=== PATIENT | female | born 1985 | race Caucasian/White ===

== ENCOUNTER 2021-02-28 20:12 | Emergency (ER) | payer OTHER, SELFPAY ==
[2021-02-28 20:23] VITALS: BP 139/77; PULSE 85; RESP 20; TEMP 36.7; O2SAT 98; BMI 27.0
[2021-02-28 21:17] LABS: COVID19 -Nasal RAPID Negative (Negative)
--- NOTE | 2021-03-01 04:36 | ED.URI ---
HPI - URI/Sore Throat General Chief Complaint: Upper Respiratory Symptoms Stated Complaint: Cough, congestion, body aches Source: patient Mode of arrival: Ambulatory History of Present Illness HPI Narrative: Patient left without being seen. Related Data Allergies Allergy/AdvReac Type Severity Reaction Status Date / Time No Known Drug Allergies Allergy Verified 02/28/21 20:30 Patient History Social History Smoking Status: Current every day smoker Smoking Status: Current every day smoker alcohol intake frequency: 0-2 drinks per day Substance Use Type: does not use Exam Initial Vital Signs Initial Vital Signs: Vital Signs Temperature 98.0 F 02/28/21 20:23 Pulse Rate 85 02/28/21 20:23 Respiratory Rate 20 02/28/21 20:23 Blood Pressure 139/77 02/28/21 20:23 Pulse Oximetry 98 02/28/21 20:23 Course Orders Ordered: ED Orders 02/28/21 20:30 COVID19 -Nasal swab/Pre-Proc Stat MDM - URI/Sore Throat Lab Data Labs: Lab Results 02/28/21 Range/Units 20:30 SARS-CoV-2 (PCR) Negative (Negative) Discharge Plan Departure Patient Disposition: Left Without Being Seen Clinical Impression: Patient left before evaluation by physician
== END 2021-02-28 21:39 | disposition left against medical advice (07) ==
PROVIDERS: Emergency Provider Emergency Medicine
DX: Z53.21 Procedure and treatment not carried out due to patient leaving prior to being seen by health care provider (principal); Z20.822 Contact with and (suspected) exposure to COVID-19
CPT/HCPCS: 87635; 99281; C9803

== ENCOUNTER 2021-06-16 15:11 | Emergency (ER) | payer OTHER, SELFPAY ==
[2021-06-16 15:28] VITALS: BP 122/79; PULSE 89; RESP 18; TEMP 36.5; O2SAT 95; BMI 28.1
[2021-06-16 16:04] LABS: COVID19 -Nasal RAPID Negative (Negative)
--- NOTE | 2021-06-16 16:04 | ED_ITS ---
HPI - URI/Sore Throat <SANDEEP Barraza - Last Filed: 06/16/21 16:07> General Chief Complaint: Shortness of Breath/Dyspnea Stated Complaint: UPPER RESPIRATORY INFECTION Time Seen by Provider: 06/16/21 15:42 Source: patient Mode of arrival: Ambulatory History of Present Illness HPI Narrative: This is a 36-year-old female presents to the emergency department complaining of sinus tenderness, bloody nasal discharge, and sinus congestion with a productive cough that has been ongoing for 2 weeks. She states she was seen at [facility] emergency 1 week ago and prescribed cough suppressant, Tessalon Perles, and a steroid pack but states she has not gotten much better. She endorses some chest tightness, productive cough, denies any fever, denies any difficulty breathing, denies any wheezing, denies any history of asthma, states that she just feels poorly. She denies any vomiting, states the last time she had a fever was 1 week ago. Related Data Previous Rx's Medication Instructions Recorded albuterol sulfate 90 mcg/actuation 1 inh INHALATION Q4-6H PRN #1 ea 06/16/21 breath activated powder inhaler amoxicillin 875 mg-potassium 1 tab PO BID 7 Days #14 tab 06/16/21 clavulanate 125 mg tablet fluticasone furoate 27.5 1 spray INTRANASAL DAILY #9.1 ml 06/16/21 mcg/actuation nasal spray,suspension inhalational spacing device (Space #1 ea 06/16/21 Chamber) Allergies Allergy/AdvReac Type Severity Reaction Status Date / Time No Known Drug Allergies Allergy Verified 02/28/21 20:30 Review of Systems <SANDEEP Barraza - Last Filed: 06/16/21 16:07> Review of Systems Narrative: General: denies fever, chills, malaise, sweats, fatigue Head/Neck: denies headache, neck pain, dizziness Eyes: denies visual changes, eye pain Cardio: denies chest pain, palpitations, edema Respiratory: denies dyspnea, cough, orthopnea, endorses congestion, sinus tenderness, green and bloody nasal discharge GI: denies abdominal pain, nausea, vomiting, or diarrhea : denies dysuria, hematuria, urinary retention, frequency or incontinence MSK: denies joint pain, muscle weakness Skin: denies rash, itching, skin lesions or other Neuro: denies numbness, tingling Patient History <SANDEEP Barraza - Last Filed: 06/16/21 16:07> Social History Smoking Status: Former smoker Smoking Status: Former smoker alcohol intake frequency: a few times a month Substance Use Type: does not use Exam <SANDEEP Barraza - Last Filed: 06/16/21 16:07> Narrative Exam Narrative: Independently reviewed vitals signs and nursing notes. General: cooperative, comfortable, in no acute distress, well developed and well groomed Head: atraumatic, symmetrical facial expressions Neck: supple, atraumatic, without lymphadenopathy. Eyes: pupils equal round and reactive, EOMI, conjunctiva normal Nose: nares patent, no rhinorrhea, tenderness to maxillary and frontal sinuses to palpation Mouth/Throat: uvula midline, moist mucus membranes, posterior pharynx without erythema Cardiovascular: regular rate and rhythm, no peripheral edema, warm extremities Respiratory: normal effort, able to speak in complete sentences, no audible wheezing, stridor, or rales. No retractions or tachypnea. GI: abdomen soft, nontender to palpation, nondistended, no masses, no exquisite tenderness with exam, without guarding or rebound. MSK: moves all extremities, ambulatory w/steady gait, neurovascularly intact, no weakness Skin: brisk capillary refill, no rash, no erythema Neuro: normal speech and cognition, A&O x3, normal tone Psych: mental status is grossly normal, congruent mood, normal affect, pleasant and cooperative Initial Vital Signs Initial Vital Signs: Vital Signs Temperature 97.7 F 06/16/21 15:28 Pulse Rate 89 06/16/21 15:28 Respiratory Rate 18 06/16/21 15:28 Blood Pressure 122/79 06/16/21 15:28 Pulse Oximetry 95 06/16/21 15:28 Course <SANDEEP Barraza - Last Filed: 06/16/21 16:07> Orders Ordered: ED Orders 06/16/21 15:30 COVID19 -Nasal RAPID/Pre-Proc Stat Discontinued Medications Albuterol (Albuterol Hfa Mdi 60 Puff/8 Gm Inhaler) 1 puff INH NOW ONE Stop: 06/16/21 16:01 Last Admin: 06/16/21 16:09 Dose: Not Given Documented by: AALIYAH Amoxicillin/Clavulanate Potassium (Amoxicillin/Clav 875/125 Mg) 1 tab PO NOW ONE Stop: 06/16/21 16:01 Last Admin: 06/16/21 16:08 Dose: 1 tab Documented by: AALIYAH Vital Signs Vital signs: Vital Signs - 8 hr 06/16/21 15:28 Temperature 97.7 F Pulse Rate 89 Respiratory Rate 18 Blood Pressure 122/79 Pulse Oximetry 95 MDM - URI/Sore Throat <SANDEEP Barraza - Last Filed: 06/16/21 16:07> Lab Data Labs: Lab Results 06/16/21 Range/Units 15:30 SARS-CoV-2 (PCR) Negative (Negative) MDM Narrative Medical decision making narrative: - Presentation suggestive of bacterial sinusitis given history/exam without evidence of facial swelling, neurologic symptoms, or ascending infection. Patient was seen 1 week ago for similar symptoms, prescribed a steroid, cough suppressant, and Tessalon Perles without improvement. Breath sounds today are clear throughout although patient endorses chest tightness, improved after albuterol inhaler. - Antibiotics prescribed today; please complete the entire course of medication. - Discussed supportive treatments to include decongestants, antihistamines, nasal saline rinses can be used for symptomatic relief. Tylenol/Motrin can be used for fever/pain control. Maintain adequate fluid intake. Patient was prescribed Flonase and encourage b.i.d. dosing, sinus rinses, antibiotics, and follow-up with primary care if not improving. - Follow-up with PCP as directed. Return to clinic/ER instructions discussed for new, not improving, or worsening symptoms. All questions answered. Discharge Plan Departure Patient Disposition: Home Clinical Impression: Sinusitis Qualifiers: Sinusitis location: maxillary Chronicity: acute Recurrence: non-recurrent Qualified Code(s): J01.00 - Acute maxillary sinusitis, unspecified Instructions: Sinusitis Activity Restrictions/Additional Instructions: *You have been diagnosed with sinusitis. Please use Flonase morning and night, take your antibiotic twice a day for the next 7 days. Please try and stay hydrated, eat food with her medications so the that your stomach. Please continue your steroids until it is gone, follow-up with your primary doctor if continue to have symptoms. You can do sinus rinses as well which may help clear your sinuses. Thank you for trusting us with your care, I hope that you feel better soon. Please use your albuterol inhaler once every 4 hours as needed for chest tightness or sensation of wheezing. *What to do: *Please continue to take your regular medications as directed. [x ] New medication prescriptions sent to your pharmacy: [ [facility]] [ ] New medication written as a paper prescription [ ] No new medications given *Please follow up with your primary care provider in 2-3 days, call for an appointment. Let them know you were seen in the Emergency Department and that we asked that you be seen for follow-up. We will electronically transmit a record of today's note if your PCP is in our system *If you do not have a primary care provider please contact [phone] to establish care with one of the [facility] primary care providers. *Return to Emergency Department if you should have any new, worsening or concerning symptoms, such as [fever greater than 101F, chills, worsening pain, persistent vomiting or other bothersome symptoms] Prescriptions: New amoxicillin-pot clavulanate 875-125 mg tablet 1 tab PO BID 7 Days Qty: 14 0RF fluticasone furoate 27.5 mcg/actuation spray,suspension 1 spray intranasal DAILY Qty: 9.1 0RF Rx Instructions: into each nostril albuterol sulfate 90 mcg/actuation aerosol powdr breath activated 1 inh inhalation Q4-6H PRN (Reason: shortness of breath) Qty: 1 0RF (DME) Space Chamber Spacer See Rx Instructions .Route Qty: 1 0RF Rx Instructions: As directed
[2021-06-16] MEDS: AMOXICILLIN/CLAV 875/125 MG 1 TAB PO (16:08)
--- NOTE | 2021-06-16 16:13 | PC.NURSE ---
Inhaler spacer teaching given by RT
== END 2021-06-16 16:13 | disposition home or self-care (01) ==
PROVIDERS: Emergency Medicine; Emergency Provider Nurse Practitioner Critical Care Medicine
DX: J01.00 Acute maxillary sinusitis, unspecified (principal); Z87.891 Personal history of nicotine dependence; Z20.822 Contact with and (suspected) exposure to COVID-19
CPT/HCPCS: 87635; 99283; C9803; A9270

== ENCOUNTER → 2021-11-10 14:47 | Outpatient (CLI) | payer OTHER, SELFPAY ==
--- NOTE | 2021-11-10 14:48 | DI.US.S_ITS ---
PROCEDURE: US OB <= 14 WEEKS FETUS INDICATIONS: DATING OUTSIDE/PRIOR DATING DATA: Last menstrual period (LMP): 08/09/2021 LMP-based estimated date of delivery (PILO): 05/16/2022 First dating scan (date and location): 11/10/2021 Estimated date of delivery (PILO) from first dating scan: 05/14/2022 The calculations are made using the clinical PILO of 05/16/2022 TECHNIQUE: Real-time scanning was performed of the fetus and maternal pelvic organs, with image documentation. Endovaginal scanning was also performed to better visualize the fetus and maternal ovaries. COMPARISON: None. FINDINGS: Embryo: Single intrauterine gestational sac is seen with fetus and yolk sac seen. [place]-rump length measures 7.5 cm. Estimated gestational age is 13 weeks, 4 days. Heart rate: 160 beats per minute. Maternal organs: No perigestational hemorrhage. Right ovary is visualized and is within normal limits. Left ovary is not well seen. IMPRESSION: 1. Single live intrauterine gestation with fetus and yolk sac seen. heart rate is 160 beats per minute. Estimated gestational age based on current study is 13 weeks, 4 days. 2. No evidence of perigestational hemorrhage. 3. Right ovary is within normal limits. Left ovary is not well seen on this study. We strive to produce accurate, complete, and clear reports of imaging services. To assist us in improving patient care, this report was composed using standard report templates and voice recognition software. Therefore, it may contain abnormal punctuation, insertions and/or omissions. Occasional wrong-word or sound-alike substitutions may occur. Though we review the report and make efforts to correct it, we do recommend that the report be read carefully in proper context to recognize any text inaccuracies. Dictated by: Filiberto Mccoy M.D. on 11/10/2021 at 20:06 Approved by: Filiberto Mccoy M.D. on 11/10/2021 at 20:09
[2021-11-10 16:33] LABS: Add Manual Diff / Slide Review NO; Basophils Absolute Auto 0 /uL (0-100); Basophils Percent Auto 0.1 % (0-2); Eosinophils Absolute Auto 100 /uL (0-450); Eosinophils Percent Auto 0.7 % (2-4); Hematocrit 36.4 % (36-46); Hemoglobin 12.7 g/dL (12.0-16.0); Lymphocytes Absolute Auto 1500 /uL (1100-4500); Lymphocytes Percent Auto 18.2 % (25-40); Mean Corpuscular HGB Conc 34.9 % (30-36); Mean Corpuscular Hemoglobin 32.1 PG (26-34); Mean Corpuscular Volume 91.9 fL (80-100); Monocytes Absolute Auto 300 /uL (0-900); Monocytes Percent Auto 3.8 % (3-14); Neutrophils Absolute Auto 6500 /uL (1500-7000); Neutrophils Percent Auto 77.2 % (50-75); Platelet Count 273 X10^3/uL (150-400); Red Blood Cell Count 3.96 X10^6/uL (4.0-5.2); Red Cell Distribution Width 12.6 % (11.6-14.8); White Blood Cell Count 8.4 X10^3/uL (4.5-11.0)
[2021-11-11 16:45] LABS: HIV 1 & 2 Ab/Ag 4th Gen Combo NEGATIVE (NEGATIVE); Hep C Virus Ab w/Reflex Quant NEGATIVE s/c (NEGATIVE); Hepatitis B Surface Antigen NEGATIVE s/c (NEGATIVE); Rubella Antibody IgG 43.6 IU/mL (>15)
[2021-11-12 04:55] LABS: RPR Screen Non Reactive (Non Reactive)
[2021-11-12 08:31] LABS: Varicella IgG Antibody 716 index (Immune >165)
== END ==
PROVIDERS: Referring Provider Obstetrics & Gynecology; Visit Provider Obstetrics & Gynecology
DX: Z34.80 Encounter for supervision of other normal pregnancy, unspecified trimester (principal); Z3A.13 13 weeks gestation of pregnancy
CPT/HCPCS: 36415; 76801; 76817; 80055; 86787; 86803; 86850; 86900; 86901; 87389

== ENCOUNTER → 2021-11-17 10:40 | Outpatient (CLI) | payer OTHER, SELFPAY ==
[2021-11-17 14:09] LABS: Appearance Urine UA CLEAR; Bilirubin Urine UA NEGATIVE (NEGATIVE); Color Urine UA YELLOW; Glucose Urine UA NEGATIVE (Negative); Ketones Urine UA TRACE (NEGATIVE); Leukocyte Esterase Urine UA NEGATIVE (NEGATIVE); Nitrite Urine UA NEGATIVE (Negative); Occult Blood Urine UA NEGATIVE (Negative); Protein Urine UA NEGATIVE (Negative); Urobilinogen Urine UA 0.2 E.U./dL (0.2)
[2021-11-17 14:11] LABS: pH Urine UA 6.5 (4.5-8.0)
== END ==
PROVIDERS: Visit Provider Obstetrics & Gynecology
DX: Z34.82 Encounter for supervision of other normal pregnancy, second trimester (principal); Z3A.14 14 weeks gestation of pregnancy
CPT/HCPCS: 36415; 81003; 87086

== ENCOUNTER → 2021-12-16 08:14 | Outpatient (CLI) | payer OTHER, SELFPAY ==
[2021-12-16 16:28] LABS: Urine N gonorrhoeae NOT DETECTED
[2021-12-16 16:32] LABS: Urine Chlamydia NOT DETECTED
== END ==
PROVIDERS: Visit Provider Obstetrics & Gynecology
DX: Z11.3 Encounter for screening for infections with a predominantly sexual mode of transmission (principal); Z34.02 Encounter for supervision of normal first pregnancy, second trimester; Z3A.18 18 weeks gestation of pregnancy
CPT/HCPCS: 87491; 87591

== ENCOUNTER → 2021-12-16 12:22 | Outpatient (CLI) | payer OTHER, SELFPAY ==
[2021-12-16 16:36] LABS: Alanine Aminotransferase 39 IU/L (<35); Albumin 3.7 g/dL (3.5-5.0); Albumin Globulin Ratio 1.2 (1.0-2.8); Alkaline Phosphatase 66 U/L (38-126); Aspartate Aminotransferase 30 IU/L (14-36); BUN Creatinine Ratio 18.8 (6-22); Bilirubin Total 0.3 mg/dL (0.2-1.3); Blood Urea Nitrogen 12 mg/dL (7-17); Calcium 8.9 mg/dL (8.4-10.2); Carbon Dioxide 25 mmol/L (22-32); Chloride 101 mmol/L (98-107); Estimated Glomerular Filt Rate > 60 mL/min (>60); Globulin 3.2 g/dL (1.7-4.1); Glucose 72 mg/dL (70-100); HEMOLYSIS < 15 (0-50); Potassium 3.8 mmol/L (3.4-5.1); Sodium 135 mmol/L (137-145); Total Protein 6.9 g/dL (6.3-8.2)
[2021-12-20 13:51] LABS: AFP Value 61.4 ng/mL (.); Gest Age on Col Date 18.4 weeks (.); Insulin Dep Diabetes No (.); OSBR Risk 1IN 2661 (.); Results Report (.); Test Results *Screen Negative* (.)
== END ==
PROVIDERS: Referring Provider Obstetrics & Gynecology; Visit Provider Obstetrics & Gynecology
DX: O09.292 Supervision of pregnancy with other poor reproductive or obstetric history, second trimester (principal); Z36.89 Encounter for other specified antenatal screening; Z11.3 Encounter for screening for infections with a predominantly sexual mode of transmission; Z3A.18 18 weeks gestation of pregnancy
CPT/HCPCS: 36415; 80053; 82105; 87491; 87591

== ENCOUNTER 2022-02-23 16:48 | Observation (INO) | payer OTHER, SELFPAY ==
--- NOTE | 2022-02-23 17:14 | PM.OBTRLD ---
Visit Information Visit Information Date of evaluation: 02/23/22 Primary OB Provider: Bubba Harp Reason for Evaluation: Yes non-stress test Comments/Additional reasons for admission: IUP, 28+3 wks EGA, Hx of PEC w/ prior and she's had BP elevations at home over the last couple of days associated on occasion with headaches and visual changes who was asked to come in for evaluation to R/O gestational HTN w/ severe features and/or [facility] Medical History (Updated 02/09/22 @ 10:17 by Bubba Harp MD) Carpal tunnel syndrome during Cholestasis during Knee pain Migraine depression Preeclampsia Varicose veins during Surgical History (Updated 11/10/21 @ 10:16 by Myra Salgado, RN) History of tonsillectomy Previous section Status post colposcopy [place] teeth extracted Family History (Updated 11/10/21 @ 10:24 by Myra Salgado, RN) Mother Diabetes mellitus Fatty liver Father Diabetes mellitus Hyperthyroidism Stroke Afib Grandmother Colon cancer Family/Other Congenital heart defect Autoimmune disease Family/Other Brain tumor Family/Other Deafness Social History marital status: unmarried,living together number of children: 1 household members: significant other and children lives independently: Yes housing: house pets and animals: Yes (1 dog) education level: college (Associate's degree) occupational status: employed current occupational exposures/hazards: Yes (initial exposure to radiation and Hazmat, no longer) special linda needs: No travel history: 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) seatbelt use: always water heater temp set < 120 deg: Yes working smoke detector in home: Yes fire extinguisher in home: Yes carbon monox detector in home: Yes firearms in home: Yes firearms unloaded and locked: Yes do you feel safe at home: Yes Smoking Status: Never smoker second hand exposure: No alcohol intake: former (1 glass wine/week prior to learning of ) substance use type: does not use during the past year weight has: remained stable well-balanced diet: daily or most days daily servings fruits/ve-4 caffeine: Yes Type(s) of exercise: walking and weight lifting Diagnosis, Plan/Disposition Final Diagnosis (1) : Status: Acute (2) Elevated transaminase level: Status: Acute Problem details: Mild ALT elevation on baseline CMP 12/16/2021 (3) History of pre-eclampsia in prior , currently : Status: Acute (4) History of cholestasis during : Status: Acute (5) Advanced maternal age affecting , antepartum: Status: Acute
[2022-02-23] MEDS: ACETAMINOPHEN 325 MG TABLET 975 MG PO (17:34)
[2022-02-23 18:13] LABS: Basophils Percent Auto 0.2 % (0-2); Eosinophils Percent Auto 0.5 % (2-4); Hematocrit 35.8 % (36-46); Hemoglobin 12.2 g/dL (12.0-16.0); Lymphocytes Percent Auto 15.1 % (25-40); Mean Corpuscular Hemoglobin 32.5 PG (26-34); Mean Corpuscular Volume 95.5 fL (80-100); Monocytes Percent Auto 4.9 % (3-14); Neutrophils Percent Auto 79.3 % (50-75); Platelet Count 288 X10^3/uL (150-400); Red Blood Cell Count 3.75 X10^6/uL (4.0-5.2); Red Cell Distribution Width 12.9 % (11.6-14.8); White Blood Cell Count 11.7 X10^3/uL (4.5-11.0)
[2022-02-23 18:14] LABS: Add Manual Diff / Slide Review NO; Basophils Absolute Auto 0 /uL (0-100); Eosinophils Absolute Auto 100 /uL (0-450); Lymphocytes Absolute Auto 1800 /uL (1100-4500); Monocytes Absolute Auto 600 /uL (0-900); Neutrophils Absolute Auto 9300 /uL (1500-7000)
[2022-02-23 18:19] LABS: Alanine Aminotransferase 31 IU/L (<35); Albumin 3.7 g/dL (3.5-5.0); Albumin Globulin Ratio 1.2 (1.0-2.8); Alkaline Phosphatase 99 U/L (38-126); Aspartate Aminotransferase 27 IU/L (14-36); Bilirubin Total 0.4 mg/dL (0.2-1.3); Bilirubin Unconjugated 0.2 mg/dL (0.0-1.1); Globulin 3.1 g/dL (1.7-4.1); HEMOLYSIS 19 (0-50); Total Protein 6.8 g/dL (6.3-8.2)
[2022-02-23 18:58] LABS: Uric Acid 2.4 mg/dL (2.5-6.2)
[2022-02-23 19:20] VITALS: BP 119/78
[2022-02-23 19:47] LABS: Protein (Total) Urine Random 39 mg/dL (0-12)
[2022-02-23 19:48] LABS: Creatinine Urine Random 127.8 mg/dL
--- NOTE | 2022-02-23 21:08 | P.TNLD_ITS ---
Visit Information Visit Information Date of evaluation: 02/23/22 Primary OB Provider: Bubba Harp Reason for Evaluation: Yes other Comments/Additional reasons for admission: Persistent elevated BP at home 36 yo with a h/o preeclampsia with 35 week delivery with her prior brought In due to reporting elevated BP's at home. She had a borderline BP at her initial OB visit at 14 weeks, BP 134/82. BP overall normal in office subsequently. She did have a borderline elevated DBP of 88 at 1 visit. Due to prior history of the preeclampsia, it was recommended that she start checking her BP at home 2-3 times per week. She did obtain a home BP cuff. She reports that yesterday and today she had significant elevated BP's, and was symptomatic with a headache. BP yesterday elevated as high as 150-170/106-128. She has significant situational stress right now with trying to move into a new home, with renters leaving late and thus delays in some repair work prior to their needed move date from her home. patient reports BP significantly elevated at home, when dealing with the stress but was better when she was at work with SBP 130s. With the BP elevation yesterday, she was hoping it would be improved today but woke up with persistent elevated BP and call the office. She has noted a headache and nausea when her BP is elevated, both improve when BP improves. Denies scotomata. Denies abdominal pain. She does reports some pubis symphysis discomfort. She is feeling good movement. Vital Signs Vital Signs: Vital Signs - 8 hr 02/23/22 19:20 Blood Pressure 119/78 [facility] Medical History (Updated 02/23/22 @ 22:16 by Makenzie East MD) Carpal tunnel syndrome during Cholestasis during Elevated BP without diagnosis of hypertension Knee pain Migraine depression Preeclampsia Varicose veins during Surgical History (Updated 11/10/21 @ 10:16 by Myra Salgado RN) History of tonsillectomy Previous section Status post colposcopy [place] teeth extracted Family History (Updated 11/10/21 @ 10:24 by Myra Salgado, ROWDY) Mother Diabetes mellitus Fatty liver Father Diabetes mellitus Hyperthyroidism Stroke Afib Grandmother Colon cancer Family/Other Congenital heart defect Autoimmune disease Family/Other Brain tumor Family/Other Deafness Social History marital status: unmarried,living together number of children: 1 household members: significant other and children lives independently: Yes housing: house pets and animals: Yes (1 dog) education level: college (Associate's degree) occupational status: employed current occupational exposures/hazards: Yes (initial exposure to radiation and Hazmat, no longer) special linda needs: No travel history: 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) seatbelt use: always water heater temp set < 120 deg: Yes working smoke detector in home: Yes fire extinguisher in home: Yes carbon monox detector in home: Yes firearms in home: Yes firearms unloaded and locked: Yes do you feel safe at home: Yes Smoking Status: Never smoker second hand exposure: No alcohol intake: former (1 glass wine/week prior to learning of ) substance use type: does not use during the past year weight has: remained stable well-balanced diet: daily or most days daily servings fruits/ve-4 caffeine: Yes Type(s) of exercise: walking and weight lifting Exam Vital Signs (past 8 hours): - 02/23/22 19:20 Blood Pressure 119/78 Initial BP 127/83, then elevated to 141/101 when discussing work stressors. Subsequent BPs 132/92, 128/83, 123/76, 124/79, 123/89, 111/67, 108/65 Const General: cooperative and healthy appearing Orientation: alert and oriented x3 HENMT Head: normal to inspection Resp Effort & Inspection: normal respiratory effort and able to speak in complete sentences Cardio Rate: regular rate GI Palpation: soft and No tender Other: Gravid, uterus nontender Neuro General: patient alert and patient oriented x3 DTR's: Rt Patellar: 1+ and Lt Patellar: 1+ Extrem General: normal to inspection and no pedal edema Objective Labs Result Diagrams: 02/23/22 17:28 Labs: Laboratory Results - last 24 hr 02/23/22 02/23/22 02/23/22 17:28 17:28 17:28 WBC 11.7 H RBC 3.75 L Hgb 12.2 Hct 35.8 L MCV 95.5 MCH 32.5 MCHC 34.0 RDW 12.9 Plt Count 288 Neut % (Auto) 79.3 H Lymph % (Auto) 15.1 L Jackson % (Auto) 4.9 Eos % (Auto) 0.5 L Baso % (Auto) 0.2 Neut # (Auto) 9300 H Lymph # (Auto) 1800 Jackson # (Auto) 600 Eos # (Auto) 100 Baso # (Auto) 0 Uric Acid 2.4 L Total Bilirubin 0.4 Conjugated Bilirubin 0.0 Unconjugated Bilirubin 0.2 AST 27 ALT 31 Alkaline Phosphatase 99 Total Protein 6.8 Albumin 3.7 Globulin 3.1 Albumin/Globulin Ratio 1.2 U Random Total Protein Urine Creatinine Protein/Creatinin Ratio 02/23/22 18:25 WBC RBC Hgb Hct MCV MCH MCHC RDW Plt Count Neut % (Auto) Lymph % (Auto) Jackson % (Auto) Eos % (Auto) Baso % (Auto) Neut # (Auto) Lymph # (Auto) Jackson # (Auto) Eos # (Auto) Baso # (Auto) Uric Acid Total Bilirubin Conjugated Bilirubin Unconjugated Bilirubin AST ALT Alkaline Phosphatase Total Protein Albumin Globulin Albumin/Globulin Ratio U Random Total Protein 39 H Urine Creatinine 127.8 Protein/Creatinin Ratio 0.30 Evaluation Evaluation Baseline heart rate: 150 Variability: Average (6-10) monitor accelerations: Present Monitor Decelerations: Absent Category of Tracing: Appropriate for gestational age Diagnosis, Plan/Disposition Final Diagnosis (1) : Status: Acute (2) Elevated BP without diagnosis of hypertension: Status: Acute (3) History of pre-eclampsia in prior , currently : Status: Acute (4) History of cholestasis during : Status: Acute Plan/Disposition Plan: Preeclamptic labs ordered and serum labs were normal. Urine protein / creatinine ratio was elevated at 0.3. She has no baseline urine protein. A 24 hour urine had been ordered for 18 weeks, but not completed. Discussed situational elevated BP verses possible onset of gestational hypertension with severity. Proteinuria concerning for gestational hypertension, possible preeclampsia but no baseline. BP did improve with rest. However with discussing stressors again BP transiently increase, then returned back to normal. Patient reports significant BP elevation yesterday 150-170 / [id number]. When BP improved still had SBP is high as 130s, nothing lower than that. She does not feel the situational stressors are going to disappear in the near future. -Will start her on labetalol 100 mg p.o. b.i.d.. advised to check BP tomorrow, prior to starting the medication and if SBP 110 or less than hold the medication and Check in with Dr. Harp in the office whether to start. -Follow-up in office in 1 week for BP check. Continue to check BP at home daily and advised to call with persistent SBP greater than 160.
[2022-02-23 21:09] VITALS: BP 119/78
== END 2022-02-23 21:06 | disposition home or self-care (01) ==
PROVIDERS: Admitting Provider Obstetrics & Gynecology; Referring Provider Obstetrics & Gynecology; Visit Provider Obstetrics & Gynecology
DX: O26.893 Other specified pregnancy related conditions, third trimester (principal); Z3A.38 38 weeks gestation of pregnancy; R03.0 Elevated blood-pressure reading, without diagnosis of hypertension; Z87.59 Personal history of other complications of pregnancy, childbirth and the puerperium
CPT/HCPCS: 59025; 59050; 80076; 82570; 84156; 84550; 85025; G0378; G0379

== ENCOUNTER → 2022-03-10 11:39 | Outpatient (CLI) | payer OTHER, SELFPAY ==
[2022-03-10 13:46] LABS: Hematocrit 34.5 % (36-46)
[2022-03-10 14:09] LABS: Alanine Aminotransferase 58 IU/L (<35); Albumin 3.6 g/dL (3.5-5.0); Albumin Globulin Ratio 1.3 (1.0-2.8); Alkaline Phosphatase 107 U/L (38-126); Aspartate Aminotransferase 31 IU/L (14-36); BUN Creatinine Ratio 14.8 (6-22); Bilirubin Total 0.3 mg/dL (0.2-1.3); Blood Urea Nitrogen 8 mg/dL (7-17); Calcium 8.8 mg/dL (8.4-10.2); Carbon Dioxide 25 mmol/L (22-32); Chloride 103 mmol/L (98-107); Estimated Glomerular Filt Rate > 60 mL/min (>60); GTT (PREG) 1 Hour PP 50gm Dose 96 mg/dL (76-139); Globulin 2.8 g/dL (1.7-4.1); Glucose 96 mg/dL (70-100); HEMOLYSIS < 15 (0-50); Potassium 3.8 mmol/L (3.4-5.1); Sodium 136 mmol/L (137-145); Total Protein 6.4 g/dL (6.3-8.2)
[2022-03-11 11:36] LABS: Bile Acids 3.6 umol/L (0.0-10.0)
== END ==
PROVIDERS: Referring Provider Obstetrics & Gynecology; Visit Provider Obstetrics & Gynecology
DX: L29.9 Pruritus, unspecified; O99.719 Diseases of the skin and subcutaneous tissue complicating pregnancy, unspecified trimester; Z3A.30 30 weeks gestation of pregnancy; Z87.19 Personal history of other diseases of the digestive system; Z87.59 Personal history of other complications of pregnancy, childbirth and the puerperium
CPT/HCPCS: 36415; 80053; 82239; 82950; 85014; 85018

== ENCOUNTER 2022-03-19 14:55 | Outpatient (CLI) | payer OTHER, SELFPAY | END 2022-03-19 16:00 | disposition home or self-care (01) | LOC: LABOR 16:08 → OB 03-21 10:36 | PROVIDERS: Referring Provider Obstetrics & Gynecology; Visit Provider Obstetrics & Gynecology | DX: O09.523 Supervision of elderly multigravida, third trimester (principal); O26.893 Other specified pregnancy related conditions, third trimester; R10.30 Lower abdominal pain, unspecified; Z3A.31 31 weeks gestation of pregnancy | CPT/HCPCS: 59025; G0378; G0379 ==

== ENCOUNTER → 2022-03-25 14:26 | Outpatient (CLI) | payer OTHER, SELFPAY ==
[2022-03-25 15:03] LABS: Add Manual Diff / Slide Review NO; Basophils Absolute Auto 0 /uL (0-100); Basophils Percent Auto 0.3 % (0-2); Eosinophils Absolute Auto 100 /uL (0-450); Hemoglobin 12.1 g/dL (12.0-16.0); Lymphocytes Absolute Auto 1300 /uL (1100-4500); Lymphocytes Percent Auto 14.5 % (25-40); Mean Corpuscular HGB Conc 33.7 % (30-36); Mean Corpuscular Hemoglobin 32.3 PG (26-34); Mean Corpuscular Volume 95.8 fL (80-100); Monocytes Absolute Auto 300 /uL (0-900); Monocytes Percent Auto 3.2 % (3-14); Neutrophils Absolute Auto 7400 /uL (1500-7000); Platelet Count 267 X10^3/uL (150-400); Red Blood Cell Count 3.75 X10^6/uL (4.0-5.2); Red Cell Distribution Width 13.2 % (11.6-14.8); White Blood Cell Count 9.1 X10^3/uL (4.5-11.0)
[2022-03-25 15:23] LABS: Alanine Aminotransferase 35 IU/L (<35); Albumin 3.5 g/dL (3.5-5.0); Albumin Globulin Ratio 1.1 (1.0-2.8); Alkaline Phosphatase 117 U/L (38-126); Aspartate Aminotransferase 26 IU/L (14-36); BUN Creatinine Ratio 13.2 (6-22); Bilirubin Total 0.3 mg/dL (0.2-1.3); Blood Urea Nitrogen 7 mg/dL (7-17); Calcium 8.8 mg/dL (8.4-10.2); Carbon Dioxide 24 mmol/L (22-32); Chloride 104 mmol/L (98-107); Estimated Glomerular Filt Rate > 60 mL/min (>60); Globulin 3.3 g/dL (1.7-4.1); Glucose 137 mg/dL (70-100); HEMOLYSIS < 15 (0-50); Potassium 3.5 mmol/L (3.4-5.1); Sodium 137 mmol/L (137-145); Total Protein 6.8 g/dL (6.3-8.2); Uric Acid 2.7 mg/dL (2.5-6.2)
[2022-03-25 19:07] LABS: Creatinine Urine Random 86.5 mg/dL; Protein (Total) Urine Random 36 mg/dL (0-12); Protein Creatinine Ratio Urine 0.41 GRAM/24H
[2022-03-26 12:08] LABS: Bile Acids 4.3 umol/L (0.0-10.0)
== END ==
PROVIDERS: Referring Provider Obstetrics & Gynecology; Visit Provider Obstetrics & Gynecology
DX: O09.299 Supervision of pregnancy with other poor reproductive or obstetric history, unspecified trimester (principal); Z87.19 Personal history of other diseases of the digestive system; Z87.59 Personal history of other complications of pregnancy, childbirth and the puerperium
CPT/HCPCS: 36415; 80053; 82239; 82570; 84156; 84550; 85025

== ENCOUNTER 2022-04-04 17:53 | Observation (INO) | payer OTHER, SELFPAY ==
[2022-04-04] MEDS: diphenhydrAMINE 50 MG/ML VIAL 25 MG IM (18:27)
[2022-04-04 18:58] LABS: Alanine Aminotransferase 51 IU/L (<35); Albumin 3.4 g/dL (3.5-5.0); Albumin Globulin Ratio 1.1 (1.0-2.8); Alkaline Phosphatase 130 U/L (38-126); Aspartate Aminotransferase 33 IU/L (14-36); BUN Creatinine Ratio 11.3 (6-22); Bilirubin Total 0.4 mg/dL (0.2-1.3); Blood Urea Nitrogen 6 mg/dL (7-17); Calcium 8.7 mg/dL (8.4-10.2); Carbon Dioxide 26 mmol/L (22-32); Chloride 106 mmol/L (98-107); Estimated Glomerular Filt Rate > 60 mL/min (>60); Globulin 3.1 g/dL (1.7-4.1); Glucose 99 mg/dL (70-100); HEMOLYSIS < 15 (0-50); Potassium 3.9 mmol/L (3.4-5.1); Sodium 137 mmol/L (137-145); Total Protein 6.5 g/dL (6.3-8.2)
--- NOTE | 2022-04-04 20:48 | PM.OBTRLD ---
Visit Information Visit Information Date of evaluation: 04/04/22 Primary OB Provider: Bubba Harp On-call OB Provider: Theresa Fisher Comments/Additional reasons for admission: 36yo at 34w0d due to itching. The pt reports ongoing worsening of her body itchiness, acutely worse in the last 24hrs. She denies any rash/hives. It seems to spare her hands, and is primarily on her arms and torso. She denies any headaches, vision changes, RUQ pain. Swelling is stable. She is feeling her baby move regularly. No LOF, vaginal bleeding, contractions. [facility] Medical History (Updated 04/04/22 @ 20:55 by Theresa Fisher MD) Carpal tunnel syndrome during Cholestasis during Elevated BP without diagnosis of hypertension Knee pain Migraine depression Preeclampsia Varicose veins during Surgical History (Updated 11/10/21 @ 10:16 by Myra Salgado RN) History of tonsillectomy Previous section Status post colposcopy [place] teeth extracted Family History (Updated 11/10/21 @ 10:24 by Myra Salgado RN) Mother Diabetes mellitus Fatty liver Father Diabetes mellitus Hyperthyroidism Stroke Afib Grandmother Colon cancer Family/Other Congenital heart defect Autoimmune disease Family/Other Brain tumor Family/Other Deafness Social History marital status: unmarried,living together number of children: 1 household members: significant other and children lives independently: Yes housing: house pets and animals: Yes (1 dog) education level: college occupational status: employed current occupational exposures/hazards: Yes (initial exposure to radiation and Hazmat, no longer) special linda needs: No travel history: recent seatbelt use: always water heater temp set < 120 deg: Yes working smoke detector in home: Yes fire extinguisher in home: Yes carbon monox detector in home: Yes firearms in home: Yes firearms unloaded and locked: Yes do you feel safe at home: Yes Smoking Status: Never smoker second hand exposure: No alcohol intake: former substance use type: does not use during the past year weight has: remained stable well-balanced diet: daily or most days daily servings fruits/ve-4 caffeine: Yes Type(s) of exercise: walking and weight lifting Exam Narrative Exam Narrative: As per nursing report, no visible rashes or hives on body. Objective Labs 04/04/22 18:30 Labs: Laboratory Results - last 24 hr 04/04/22 18:30 Sodium 137 Potassium 3.9 Chloride 106 Carbon Dioxide 26 BUN 6 L Creatinine 0.53 Estimated GFR > 60 BUN/Creatinine Ratio 11.3 Glucose 99 Calcium 8.7 Total Bilirubin 0.4 AST 33 ALT 51 H Alkaline Phosphatase 130 H Total Protein 6.5 Albumin 3.4 L Globulin 3.1 Albumin/Globulin Ratio 1.1 Evaluation Evaluation Baseline heart rate: 120 Variability: Moderate (11-25) monitor accelerations: Present Monitor Decelerations: Absent Category of Tracing: Reactive Diagnosis, Plan/Disposition Final Diagnosis (1) Elevated transaminase level: Status: Acute Problem details: Mild ALT elevation on baseline CMP 12/16/2021 (2) History of cholestasis during : Status: Acute (3) History of pre-eclampsia in prior , currently : Status: Acute (4) Itch: Status: Acute Plan/Disposition Plan: 36yo at 34w0d here with worsening of her body itching, sparing hands and feet. Atypical location for cholestasis of , however pt reports it spared her hands and feet when diagnosed last as well. Bile acids normal 03/25. Repeat drawn today due to acute worsening of symptoms. Itchiness did improve to more tolerable level with IM Benadryl. Okay to continue PO Benadryl at home. ALT remains slightly elevated, however not significantly changed from previous values. Did not initiate Ursediol today, as bile acids still pending. Pt has f/u appt with primary OB on 04/08, hopeful lab will have returned by then. Pts BPs are stable today, does have hx of pre-eclampsia with BP slightly elevated at last appt. Stable for d/c home. OB Disposition: home
[2022-04-07 10:24] LABS: Bile Acids 7.1 umol/L (0.0-10.0)
== END 2022-04-04 19:25 | disposition home or self-care (01) ==
LOC: LABOR 17:56
PROVIDERS: Admitting Provider Obstetrics & Gynecology; Referring Provider Family Medicine; Visit Provider Family Medicine
DX: O26.893 Other specified pregnancy related conditions, third trimester (principal); L29.9 Pruritus, unspecified; Z3A.34 34 weeks gestation of pregnancy
CPT/HCPCS: 59025; 80053; 82239; 96372; G0378; G0379; J1200

== ENCOUNTER → 2022-04-08 15:13 | Outpatient (CLI) | payer OTHER, SELFPAY ==
[2022-04-08 16:42] LABS: Add Manual Diff / Slide Review NO; Basophils Absolute Auto 0 /uL (0-100); Basophils Percent Auto 0.2 % (0-2); Eosinophils Absolute Auto 100 /uL (0-450); Eosinophils Percent Auto 0.8 % (2-4); Hematocrit 34.6 % (36-46); Hemoglobin 11.8 g/dL (12.0-16.0); Lymphocytes Absolute Auto 1300 /uL (1100-4500); Lymphocytes Percent Auto 16.1 % (25-40); Mean Corpuscular HGB Conc 33.9 % (30-36); Mean Corpuscular Hemoglobin 32.2 PG (26-34); Mean Corpuscular Volume 94.9 fL (80-100); Monocytes Absolute Auto 500 /uL (0-900); Neutrophils Absolute Auto 6400 /uL (1500-7000); Neutrophils Percent Auto 76.9 % (50-75); Platelet Count 255 X10^3/uL (150-400); Red Blood Cell Count 3.65 X10^6/uL (4.0-5.2); White Blood Cell Count 8.3 X10^3/uL (4.5-11.0)
[2022-04-08 17:03] LABS: Alanine Aminotransferase 81 IU/L (<35); Albumin 3.5 g/dL (3.5-5.0); Albumin Globulin Ratio 1.2 (1.0-2.8); Alkaline Phosphatase 142 U/L (38-126); Aspartate Aminotransferase 52 IU/L (14-36); BUN Creatinine Ratio 17.5 (6-22); Bilirubin Total 0.4 mg/dL (0.2-1.3); Blood Urea Nitrogen 10 mg/dL (7-17); Calcium 8.6 mg/dL (8.4-10.2); Carbon Dioxide 21 mmol/L (22-32); Chloride 106 mmol/L (98-107); Estimated Glomerular Filt Rate > 60 mL/min (>60); Globulin 2.9 g/dL (1.7-4.1); Glucose 98 mg/dL (70-100); HEMOLYSIS < 15 (0-50); Potassium 4.1 mmol/L (3.4-5.1); Sodium 136 mmol/L (137-145); Total Protein 6.4 g/dL (6.3-8.2); Uric Acid 2.8 mg/dL (2.5-6.2)
[2022-04-08 19:24] LABS: Creatinine Urine Random 117.8 mg/dL; Protein (Total) Urine Random 22 mg/dL (0-12); Protein Creatinine Ratio Urine 0.18 GRAM/24H
[2022-04-10 12:08] LABS: Bile Acids 11.7 umol/L (0.0-10.0)
== END ==
PROVIDERS: Referring Provider Obstetrics & Gynecology; Visit Provider Obstetrics & Gynecology
DX: R80.9 Proteinuria, unspecified (principal); R03.0 Elevated blood-pressure reading, without diagnosis of hypertension; L29.9 Pruritus, unspecified
CPT/HCPCS: 36415; 80053; 82239; 82570; 84156; 84550; 85025

== ENCOUNTER 2022-04-12 11:53 | Outpatient (CLI) | payer OTHER, SELFPAY ==
[2022-04-12 12:39] LABS: Add Manual Diff / Slide Review NO; Basophils Absolute Auto 0 /uL (0-100); Basophils Percent Auto 0.2 % (0-2); Eosinophils Absolute Auto 100 /uL (0-450); Eosinophils Percent Auto 0.8 % (2-4); Hematocrit 33.7 % (36-46); Hemoglobin 11.6 g/dL (12.0-16.0); Lymphocytes Absolute Auto 1200 /uL (1100-4500); Mean Corpuscular HGB Conc 34.5 % (30-36); Mean Corpuscular Hemoglobin 32.7 PG (26-34); Mean Corpuscular Volume 94.8 fL (80-100); Monocytes Absolute Auto 400 /uL (0-900); Neutrophils Absolute Auto 5100 /uL (1500-7000); Platelet Count 244 X10^3/uL (150-400); Red Blood Cell Count 3.55 X10^6/uL (4.0-5.2); White Blood Cell Count 6.7 X10^3/uL (4.5-11.0)
[2022-04-12 12:54] LABS: Alanine Aminotransferase 74 IU/L (<35); Albumin 3.5 g/dL (3.5-5.0); Albumin Globulin Ratio 1.2 (1.0-2.8); Alkaline Phosphatase 143 U/L (38-126); Aspartate Aminotransferase 42 IU/L (14-36); BUN Creatinine Ratio 17.4 (6-22); Bilirubin Total 0.3 mg/dL (0.2-1.3); Blood Urea Nitrogen 8 mg/dL (7-17); Calcium 8.6 mg/dL (8.4-10.2); Carbon Dioxide 24 mmol/L (22-32); Chloride 107 mmol/L (98-107); Estimated Glomerular Filt Rate > 60 mL/min (>60); Globulin 2.9 g/dL (1.7-4.1); Glucose 108 mg/dL (70-100); HEMOLYSIS < 15 (0-50); Potassium 3.7 mmol/L (3.4-5.1); Sodium 134 mmol/L (137-145); Total Protein 6.4 g/dL (6.3-8.2)
--- NOTE | 2022-04-12 13:15 | PM.OBTRLD ---
Visit Information Visit Information Date of evaluation: 04/12/22 Primary OB Provider: Bubba Harp Reason for Evaluation: Yes non-stress test Comments/Additional reasons for admission: Lucero is a 36 yo at 35+ 1 weeks gestational age presenting for NST and labs due to recently diagnosed intrahepatic cholestasis of for which she is been started on ursodiol 300 mg p.o. t.i.d.. Her itching is significantly improved and her baby is active. She is not experiencing contractions, bleeding, leakage of fluid per vagina, or change in discharge. In addition she has a history of preeclampsia with her 1st delivery requiring delivery. She is had some mild blood pressure elevations but thus far her blood pressures have not met criteria for gestational hypertension. She was noted earlier in the to have mild AST/ALT elevation and has had a slight increase on her most recent labs on 04/08/2022. Vital Signs Vital Signs: BP: 133/81, 129/79 P: 77 T: 35.9C PFSH Medical History (Updated 04/12/22 @ 13:24 by Bubba Harp MD) Carpal tunnel syndrome during Cholestasis during Elevated BP without diagnosis of hypertension Knee pain Migraine depression Preeclampsia Varicose veins during Surgical History (Updated 11/10/21 @ 10:16 by Myra Salgado, ROWDY) History of tonsillectomy Previous section Status post colposcopy [place] teeth extracted Family History (Updated 11/10/21 @ 10:24 by Myra Salgado, RN) Mother Diabetes mellitus Fatty liver Father Diabetes mellitus Hyperthyroidism Stroke Afib Grandmother Colon cancer Family/Other Congenital heart defect Autoimmune disease Family/Other Brain tumor Family/Other Deafness Social History marital status: unmarried,living together number of children: 1 household members: significant other and children lives independently: Yes housing: house pets and animals: Yes (1 dog) education level: college occupational status: employed current occupational exposures/hazards: Yes (initial exposure to radiation and Hazmat, no longer) special linda needs: No travel history: recent seatbelt use: always water heater temp set < 120 deg: Yes working smoke detector in home: Yes fire extinguisher in home: Yes carbon monox detector in home: Yes firearms in home: Yes firearms unloaded and locked: Yes do you feel safe at home: Yes Smoking Status: Never smoker second hand exposure: No alcohol intake: former substance use type: does not use during the past year weight has: remained stable well-balanced diet: daily or most days daily servings fruits/ve-4 caffeine: Yes Type(s) of exercise: walking and weight lifting Review of Systems Review of Systems Narrative: Problem-specific ROS positives included in HPI Exam HENMT Head: normal to inspection, normocephalic and atraumatic Eyes General: appearance normal, both eyes and all related structures Resp Effort & Inspection: normal respiratory effort and able to speak in complete sentences GI Inspection: normal to inspection Palpation: soft and no hepatosplenomegaly Uterus Location (Fundal Height): 35 Presentation: vertex Estimated Weight (lbs): 6 Extrem Right lower extremity: normal to inspection Objective Labs 04/12/22 12:30 04/12/22 12:30 Labs: Laboratory Results - last 24 hr 04/12/22 04/12/22 12:30 12:30 WBC 6.7 RBC 3.55 L Hgb 11.6 L Hct 33.7 L MCV 94.8 MCH 32.7 MCHC 34.5 RDW 13.0 Plt Count 244 Neut % (Auto) 75.0 Lymph % (Auto) 18.0 L Cameron % (Auto) 6.0 Eos % (Auto) 0.8 L Baso % (Auto) 0.2 Neut # (Auto) 5100 Lymph # (Auto) 1200 Cameron # (Auto) 400 Eos # (Auto) 100 Baso # (Auto) 0 Sodium 134 L Potassium 3.7 Chloride 107 Carbon Dioxide 24 BUN 8 Creatinine 0.46 L Estimated GFR > 60 BUN/Creatinine Ratio 17.4 Glucose 108 H Calcium 8.6 Total Bilirubin 0.3 AST 42 H ALT 74 H Alkaline Phosphatase 143 H Total Protein 6.4 Albumin 3.5 Globulin 2.9 Albumin/Globulin Ratio 1.2 Evaluation Evaluation Baseline heart rate: 130 Variability: Moderate (11-25) monitor accelerations: Present Monitor Decelerations: Absent Contraction Frequency (minutes): 8 Uterine Contraction Intensity: Mild (Patient does not feel them) Category of Tracing: Reactive Status: Category l Diagnosis, Plan/Disposition Final Diagnosis (1) Intrahepatic cholestasis of in third trimester, antepartum: Status: Acute (2) Elevated BP without diagnosis of hypertension: Status: Acute (3) History of pre-eclampsia in prior , currently : Status: Acute (4) Advanced maternal age affecting , antepartum: Status: Acute Plan/Disposition Plan: Labs today showed no thrombocytopenia and her LFTs are slightly lower today after initiating ursodiol. Bile acid levels pending as is protein to creatinine ratio. Patient provided with a letter limiting her to 4 hour days. Follow-up will be on 04/15/2022 for an BUTCH visit but will also have an NST and labs prior to being seen at 2:30 PM in the office. Precautionary symptoms again reviewed. OB Disposition: home
[2022-04-12 13:59] LABS: Protein (Total) Urine Random 24 mg/dL (0-12); Protein Creatinine Ratio Urine 0.33 GRAM/24H
[2022-04-14 15:31] LABS: Bile Acids 19.2 umol/L (0.0-10.0)
== END 2022-04-12 13:15 | disposition home or self-care (01) ==
LOC: LABOR 12:18 → OB 04-13 16:15
PROVIDERS: Referring Provider Obstetrics & Gynecology; Visit Provider Obstetrics & Gynecology
DX: O26.613 Liver and biliary tract disorders in pregnancy, third trimester (principal); O26.893 Other specified pregnancy related conditions, third trimester; R03.0 Elevated blood-pressure reading, without diagnosis of hypertension; O09.523 Supervision of elderly multigravida, third trimester; K83.1 Obstruction of bile duct; Z3A.35 35 weeks gestation of pregnancy
CPT/HCPCS: 36415; 59025; 80053; 82239; 82570; 84156; 85025; G0378; G0379

== ENCOUNTER 2022-04-15 13:41 | Outpatient (CLI) | payer OTHER, SELFPAY ==
[2022-04-15 14:36] LABS: Add Manual Diff / Slide Review YES; Hematocrit 32.7 % (36-46); Hemoglobin 11.6 g/dL (12.0-16.0); Mean Corpuscular HGB Conc 35.4 % (30-36); Mean Corpuscular Hemoglobin 33.5 PG (26-34); Mean Corpuscular Volume 94.6 fL (80-100); Platelet Count 239 X10^3/uL (150-400); Red Blood Cell Count 3.45 X10^6/uL (4.0-5.2); Red Cell Distribution Width 12.8 % (11.6-14.8); White Blood Cell Count 7.4 X10^3/uL (4.5-11.0)
[2022-04-15 14:52] LABS: Alanine Aminotransferase 61 IU/L (<35); Albumin 3.2 g/dL (3.5-5.0); Albumin Globulin Ratio 1.1 (1.0-2.8); Alkaline Phosphatase 139 U/L (38-126); Aspartate Aminotransferase 37 IU/L (14-36); Bilirubin Total 0.4 mg/dL (0.2-1.3); Blood Urea Nitrogen 9 mg/dL (7-17); Calcium 8.2 mg/dL (8.4-10.2); Carbon Dioxide 19 mmol/L (22-32); Chloride 107 mmol/L (98-107); Estimated Glomerular Filt Rate > 60 mL/min (>60); Glucose 117 mg/dL (70-100); HEMOLYSIS < 15 (0-50); Potassium 3.8 mmol/L (3.4-5.1); Sodium 134 mmol/L (137-145); Total Protein 6.2 g/dL (6.3-8.2)
[2022-04-15 14:59] LABS: Neutrophils Absolute Manual 5772 /uL (3000-5900); Total Cells Counted 100
[2022-04-15 15:00] LABS: RBC Morphology Normal Morphology
[2022-04-15 15:14] LABS: Creatinine Urine Random 152.2 mg/dL; Protein (Total) Urine Random 26 mg/dL (0-12); Protein Creatinine Ratio Urine 0.17 GRAM/24H
== END 2022-04-15 14:39 | disposition home or self-care (01) ==
LOC: LABOR 14:17 → OB 04-21 13:38
PROVIDERS: Referring Provider Obstetrics & Gynecology; Visit Provider Obstetrics & Gynecology
DX: O09.523 Supervision of elderly multigravida, third trimester (principal); Z3A.35 35 weeks gestation of pregnancy
CPT/HCPCS: 80053; 82239; 82570; 84156; 85007; 85025; 87653; G0378; G0379

== ENCOUNTER → 2022-04-15 15:06 | Outpatient (CLI) | payer OTHER, SELFPAY ==
[2022-04-16 15:55] LABS: Strep Grp B PCR NEG for Grp B Strep
== END ==
PROVIDERS: Visit Provider Obstetrics & Gynecology
DX: Z34.83 Encounter for supervision of other normal pregnancy, third trimester (principal); Z3A.35 35 weeks gestation of pregnancy
CPT/HCPCS: 87653

== ENCOUNTER 2022-04-19 15:37 | Observation (INO) | payer OTHER, SELFPAY ==
[2022-04-19 17:34] LABS: Add Manual Diff / Slide Review NO; Basophils Absolute Auto 0 /uL (0-100); Basophils Percent Auto 0.4 % (0-2); Eosinophils Absolute Auto 100 /uL (0-450); Eosinophils Percent Auto 0.8 % (2-4); Hematocrit 32.6 % (36-46); Hemoglobin 11.3 g/dL (12.0-16.0); Lymphocytes Absolute Auto 1500 /uL (1100-4500); Lymphocytes Percent Auto 18.7 % (25-40); Mean Corpuscular HGB Conc 34.9 % (30-36); Mean Corpuscular Volume 94.7 fL (80-100); Monocytes Absolute Auto 400 /uL (0-900); Monocytes Percent Auto 4.6 % (3-14); Neutrophils Absolute Auto 6100 /uL (1500-7000); Neutrophils Percent Auto 75.5 % (50-75); Platelet Count 253 X10^3/uL (150-400); Red Blood Cell Count 3.44 X10^6/uL (4.0-5.2); Red Cell Distribution Width 13.1 % (11.6-14.8); White Blood Cell Count 8.1 X10^3/uL (4.5-11.0)
[2022-04-19 17:47] LABS: Alanine Aminotransferase 62 IU/L (<35); Albumin 3.4 g/dL (3.5-5.0); Albumin Globulin Ratio 1.1 (1.0-2.8); Alkaline Phosphatase 149 U/L (38-126); Aspartate Aminotransferase 37 IU/L (14-36); BUN Creatinine Ratio 15.1 (6-22); Bilirubin Total 0.3 mg/dL (0.2-1.3); Blood Urea Nitrogen 8 mg/dL (7-17); Calcium 8.6 mg/dL (8.4-10.2); Carbon Dioxide 22 mmol/L (22-32); Chloride 106 mmol/L (98-107); Estimated Glomerular Filt Rate > 60 mL/min (>60); Glucose 106 mg/dL (70-100); HEMOLYSIS < 15 (0-50); Potassium 3.6 mmol/L (3.4-5.1); Sodium 136 mmol/L (137-145); Total Protein 6.4 g/dL (6.3-8.2)
[2022-04-19 18:09] LABS: Creatinine Urine Random 89.2 mg/dL; Protein (Total) Urine Random 21 mg/dL (0-12); Protein Creatinine Ratio Urine 0.23 GRAM/24H
[2022-04-22 09:22] LABS: Bile Acids 17.7 umol/L (0.0-10.0)
== END 2022-04-19 17:26 | disposition home or self-care (01) ==
PROVIDERS: Admitting Provider Obstetrics & Gynecology; Referring Provider Obstetrics & Gynecology; Visit Provider Obstetrics & Gynecology
DX: O16.3 Unspecified maternal hypertension, third trimester (principal); O47.03 False labor before 37 completed weeks of gestation, third trimester; O09.523 Supervision of elderly multigravida, third trimester; Z3A.36 36 weeks gestation of pregnancy
CPT/HCPCS: 36415; 59025; 59050; 80053; 82239; 82570; 84156; 85025; G0378; G0379

== ENCOUNTER 2022-04-22 12:30 | Outpatient (CLI) | payer OTHER, SELFPAY ==
[2022-04-22 13:20] LABS: Add Manual Diff / Slide Review NO; Basophils Absolute Auto 0 /uL (0-100); Basophils Percent Auto 0.4 % (0-2); Eosinophils Absolute Auto 0 /uL (0-450); Eosinophils Percent Auto 0.4 % (2-4); Hematocrit 35.9 % (36-46); Hemoglobin 12.2 g/dL (12.0-16.0); Lymphocytes Absolute Auto 1300 /uL (1100-4500); Lymphocytes Percent Auto 16.5 % (25-40); Mean Corpuscular HGB Conc 33.9 % (30-36); Mean Corpuscular Hemoglobin 32.5 PG (26-34); Mean Corpuscular Volume 95.7 fL (80-100); Monocytes Absolute Auto 300 /uL (0-900); Monocytes Percent Auto 4.2 % (3-14); Neutrophils Absolute Auto 6400 /uL (1500-7000); Neutrophils Percent Auto 78.5 % (50-75); Platelet Count 244 X10^3/uL (150-400); Red Blood Cell Count 3.75 X10^6/uL (4.0-5.2); Red Cell Distribution Width 13.1 % (11.6-14.8); White Blood Cell Count 8.1 X10^3/uL (4.5-11.0)
[2022-04-22 13:33] LABS: Alanine Aminotransferase 64 IU/L (<35); Albumin 3.6 g/dL (3.5-5.0); Albumin Globulin Ratio 1.2 (1.0-2.8); Alkaline Phosphatase 163 U/L (38-126); Aspartate Aminotransferase 41 IU/L (14-36); BUN Creatinine Ratio 17.2 (6-22); Bilirubin Total 0.4 mg/dL (0.2-1.3); Blood Urea Nitrogen 10 mg/dL (7-17); Calcium 9.1 mg/dL (8.4-10.2); Carbon Dioxide 24 mmol/L (22-32); Chloride 104 mmol/L (98-107); Estimated Glomerular Filt Rate > 60 mL/min (>60); Globulin 3.1 g/dL (1.7-4.1); Glucose 86 mg/dL (70-100); HEMOLYSIS < 15 (0-50); Sodium 134 mmol/L (137-145); Total Protein 6.7 g/dL (6.3-8.2)
[2022-04-22 15:11] LABS: Creatinine Urine Random 64.1 mg/dL; Protein (Total) Urine Random 19 mg/dL (0-12); Protein Creatinine Ratio Urine 0.29 GRAM/24H
[2022-04-23 13:45] LABS: Bile Acids 25.7 umol/L (0.0-10.0)
--- NOTE | 2022-04-24 10:30 | P.TNLD_ITS ---
Visit Information Visit Information Date of evaluation: 04/22/22 Primary OB Provider: Bubba Harp Reason for Evaluation: Yes non-stress test Comments/Additional reasons for admission: Lucero returns for her twice weekly NST now at 36+4 wks EGA due to IHCP w/ mildly elevated LFT's, increasingly labile BP, AMA, and history of PEC w/ severe features necessitating delivery by CS at 35 weeks EGA with her first . BP's at home have been in the 130 - mid-140'w / 80 - mid-90's range. Her itching is markedly improved with the Ursodiol but she still has to take benadryl occasionally for the itching. Vital Signs Vital Signs: Initial BP: 170/112 P: 102 (Patient arrived tearful and upset after office visit immediately prior to NST) 10 minutes later: BP: 143/85, 133/84 P: 90 T: 36.1C [facility] Medical History (Updated 04/12/22 @ 13:24 by Bubba Harp MD) Carpal tunnel syndrome during Cholestasis during Elevated BP without diagnosis of hypertension Knee pain Migraine depression Preeclampsia Varicose veins during Surgical History (Updated 04/12/22 @ 13:30 by Bubba Harp MD) History of tonsillectomy Previous section Status post colposcopy [place] teeth extracted Family History (Updated 11/10/21 @ 10:24 by Myra Salgado RN) Mother Diabetes mellitus Fatty liver Father Diabetes mellitus Hyperthyroidism Stroke Afib Grandmother Colon cancer Family/Other Congenital heart defect Autoimmune disease Family/Other Brain tumor Family/Other Deafness Social History marital status: unmarried,living together number of children: 1 household members: significant other and children lives independently: Yes housing: house pets and animals: Yes (1 dog) education level: college occupational status: employed current occupational exposures/hazards: Yes (initial exposure to radiation and Hazmat, no longer) special linda needs: No travel history: recent seatbelt use: always water heater temp set < 120 deg: Yes working smoke detector in home: Yes fire extinguisher in home: Yes carbon monox detector in home: Yes firearms in home: Yes firearms unloaded and locked: Yes do you feel safe at home: Yes Smoking Status: Never smoker second hand exposure: No alcohol intake: former substance use type: does not use during the past year weight has: remained stable well-balanced diet: daily or most days daily servings fruits/ve-4 caffeine: Yes Type(s) of exercise: walking and weight lifting Exam HENMT Head: normal to inspection, normocephalic and atraumatic Eyes General: appearance normal, both eyes and all related structures Resp Effort & Inspection: normal respiratory effort and able to speak in complete sentences GI Inspection: normal to inspection Palpation: soft and no hepatosplenomegaly Psych Appearance: grossly normal Mental Status: mental status grossly normal Speech and Movement: speech and movement normal Mood: anxious mood Affect: normal affect Attitude: cooperative Thought Process: normal Thought Content: normal Judgment: judgment good Objective Labs 04/22/22 13:05 04/22/22 13:05 Labs: Laboratory Results - last 24 hr 04/22/22 13:05 Bile Acids 25.7 H protein to creatinine ratio: 0.29 Evaluation Evaluation Baseline heart rate: 130 Variability: Moderate (11-25) monitor accelerations: Present Monitor Decelerations: Absent Contraction Frequency (minutes): 5 Uterine Contraction Intensity: Mild Category of Tracing: Reactive Diagnosis, Plan/Disposition Final Diagnosis (1) History of delivery, antepartum: Status: Acute (2) Intrahepatic cholestasis of in third trimester, antepartum: Status: Acute (3) Elevated BP without diagnosis of hypertension: Status: Acute (4) Elevated transaminase level: Status: Acute Problem details: Mild ALT elevation on baseline CMP 12/16/2021 (5) : Status: Acute (6) History of pre-eclampsia in prior , currently : Status: Acute (7) Advanced maternal age affecting , antepartum: Status: Acute Plan/Disposition Plan: Dating for this is solid w/ first US at 13+4 wks EGA concurrent w/ LMP based PILO, make infant by [facility]. Her labile initial BP transiently into the severe range when she was upset is concerning but as long as long as BP's remain non-severe range at home, no clear indication currently for delivery prior to 38 weeks. Will continue twice weekly NST/labs and deliver after 37 weeks if antihypetensive therapy becomes necessary. Will also review with Dr. lAyson Degroot who is currently scheduled to perform her RCS on Tuesday May 03, 2022 in my scheduled absence that date. OB Disposition: home
== END 2022-04-22 13:25 | disposition home or self-care (01) ==
LOC: LABOR 13:26 → OB 04-27 06:57
PROVIDERS: Referring Provider Obstetrics & Gynecology; Visit Provider Obstetrics & Gynecology
DX: O09.523 Supervision of elderly multigravida, third trimester (principal); O26.613 Liver and biliary tract disorders in pregnancy, third trimester; K83.1 Obstruction of bile duct; Z3A.36 36 weeks gestation of pregnancy; O34.219 Maternal care for unspecified type scar from previous cesarean delivery; O26.893 Other specified pregnancy related conditions, third trimester; R03.0 Elevated blood-pressure reading, without diagnosis of hypertension; Z87.59 Personal history of other complications of pregnancy, childbirth and the puerperium
CPT/HCPCS: 36415; 59025; 80053; 82239; 82570; 84156; 85025; G0378; G0379

== ENCOUNTER 2022-04-27 14:52 | Observation (INO) | payer OTHER, SELFPAY ==
[2022-04-27 15:36] LABS: Add Manual Diff / Slide Review NO; Basophils Absolute Auto 0 /uL (0-100); Basophils Percent Auto 0.3 % (0-2); Eosinophils Absolute Auto 0 /uL (0-450); Eosinophils Percent Auto 0.3 % (2-4); Hemoglobin 12.1 g/dL (12.0-16.0); Lymphocytes Absolute Auto 1300 /uL (1100-4500); Lymphocytes Percent Auto 17.9 % (25-40); Mean Corpuscular HGB Conc 34.5 % (30-36); Mean Corpuscular Hemoglobin 32.9 PG (26-34); Mean Corpuscular Volume 95.3 fL (80-100); Monocytes Absolute Auto 300 /uL (0-900); Monocytes Percent Auto 4.3 % (3-14); Neutrophils Absolute Auto 5500 /uL (1500-7000); Neutrophils Percent Auto 77.2 % (50-75); Platelet Count 220 X10^3/uL (150-400); Red Blood Cell Count 3.67 X10^6/uL (4.0-5.2); Red Cell Distribution Width 13.4 % (11.6-14.8); White Blood Cell Count 7.2 X10^3/uL (4.5-11.0)
[2022-04-27 15:59] LABS: Alanine Aminotransferase 124 IU/L (<35); Albumin 3.5 g/dL (3.5-5.0); Albumin Globulin Ratio 1.1 (1.0-2.8); Alkaline Phosphatase 170 U/L (38-126); Aspartate Aminotransferase 70 IU/L (14-36); BUN Creatinine Ratio 22.2 (6-22); Bilirubin Total 0.3 mg/dL (0.2-1.3); Blood Urea Nitrogen 12 mg/dL (7-17); Calcium 8.5 mg/dL (8.4-10.2); Carbon Dioxide 23 mmol/L (22-32); Chloride 105 mmol/L (98-107); Estimated Glomerular Filt Rate > 60 mL/min (>60); Globulin 3.1 g/dL (1.7-4.1); Glucose 110 mg/dL (70-100); HEMOLYSIS < 15 (0-50); Potassium 3.8 mmol/L (3.4-5.1); Sodium 135 mmol/L (137-145); Total Protein 6.6 g/dL (6.3-8.2)
[2022-04-27 17:04] LABS: Creatinine Urine Random 229.7 mg/dL; Protein (Total) Urine Random 12 mg/dL (0-12); Protein Creatinine Ratio Urine 0.05 GRAM/24H
[2022-04-30 10:42] LABS: Bile Acids 13.3 umol/L (0.0-10.0)
== END 2022-04-27 17:12 | disposition home or self-care (01) ==
PROVIDERS: Admitting Provider Obstetrics & Gynecology; Referring Provider Obstetrics & Gynecology; Visit Provider Obstetrics & Gynecology
DX: O47.1 False labor at or after 37 completed weeks of gestation (principal); O09.523 Supervision of elderly multigravida, third trimester; Z3A.37 37 weeks gestation of pregnancy
CPT/HCPCS: 36415; 59025; 80053; 82239; 82570; 84156; 85025; G0378; G0379

== ENCOUNTER 2022-04-29 05:48 | Inpatient (IN) | payer OTHER, SELFPAY ==
--- NOTE | 2022-04-29 07:20 | PM.OBHP.1 ---
OB HPI Date/Time Date of admission: 04/29/22 Date Patient Seen: 04/29/22 Time Patient Seen: 07:20 History of Present Condition Chief complaint: IUP, 37+4 wks EGA, IHCP, elevated LFT's : 2 Para: 1 Estimated Date of Delivery: 05/16/22 Estimated Gestational Age (weeks): 37+4 Narrative: Isha Su is a 36 year old Indications Operative indications ( section): previous uterine surgery History of Present care: good care Dating criteria: LMP confirmed by 1st trimester US Ultrasounds: normal 1st trimester US and normal mid trimester US Obstetrical complications: gestational hypertension (Intermittent BP elevations) and other (Intrahepatic cholestasis of with elevated LFTs) Medical complications: none Preadmission Labs Blood type: A (+) positive -: Antibody screen: negative, GBS status: negative, HBsAG: negative, HIV: negative and RPR/VDLR: negative -: Chlamydia screen: not detected and Gonorrhea screen: not detected -: Rubella: immune and Varicella: immune HCT: 35.0 HCAB: negative PAP: Normal Quad screen: Normal (AFP testing negative) Cell-free DNA: Low risk male 1 hr GTT: 96 Prior (ies) History: CS x 1 Evaluation Evaluation Baseline heart rate: 140 Variability: Moderate (11-25) monitor accelerations: Present Monitor Decelerations: Absent Uterine Contraction Intensity: Mild Status: Category l PFSH Medical History (Updated 04/27/22 @ 14:48 by Bubba Harp MD) Carpal tunnel syndrome during Cholestasis during Elevated BP without diagnosis of hypertension Knee pain Migraine depression Preeclampsia Varicose veins during Surgical History (Updated 04/12/22 @ 13:30 by Bubba Harp MD) History of tonsillectomy Previous section Status post colposcopy [place] teeth extracted Family History (Updated 11/10/21 @ 10:24 by Myra Salgado RN) Mother Diabetes mellitus Fatty liver Father Diabetes mellitus Hyperthyroidism Stroke Afib Grandmother Colon cancer Family/Other Congenital heart defect Autoimmune disease Family/Other Brain tumor Family/Other Deafness Social History marital status: unmarried,living together number of children: 1 household members: significant other and children lives independently: Yes housing: house pets and animals: Yes (1 dog) education level: college occupational status: employed current occupational exposures/hazards: Yes (initial exposure to radiation and Hazmat, no longer) special linda needs: No travel history: recent seatbelt use: always water heater temp set < 120 deg: Yes working smoke detector in home: Yes fire extinguisher in home: Yes carbon monox detector in home: Yes firearms in home: Yes firearms unloaded and locked: Yes do you feel safe at home: Yes Smoking Status: Never smoker second hand exposure: No alcohol intake: former substance use type: does not use during the past year weight has: remained stable well-balanced diet: daily or most days daily servings fruits/ve-4 caffeine: Yes Type(s) of exercise: walking and weight lifting Meds Home Medications and Allergies Home Medications Medication Instructions Recorded Confirmed Type prenat.vits,louis,kua-tpno-celvo 1 tab PO DAILY 11/10/21 04/29/22 History ursodiol 300 mg capsule 300 mg PO TID #90 caps 04/09/22 04/29/22 Rx omeprazole 20 mg capsule,delayed 20 mg 2XD 04/29/22 04/29/22 History release Allergies Allergy/AdvReac Type Severity Reaction Status Date / Time No Known Drug Allergies Allergy Verified 04/27/22 14:02 Review of Systems Review of Systems Narrative: Problem-specific ROS positives included in HPI OB Exam Vital signs Blood Pressure: 126/81 Pulse Rate: 85 Temperature: 97.0 F HENMT Head: normal to inspection, normocephalic and atraumatic Eyes General: appearance normal, both eyes and all related structures Resp Effort & Inspection: normal respiratory effort and able to speak in complete sentences Auscultation: clear to auscultation bilaterally Cardio Rate: regular rate Rhythm: regular rhythm Heart Sounds: S1 normal, S2 normal and no murmurs Extremities Lower extremity: Yes normal to inspection GI Inspection: normal to inspection Palpation: Yes soft and Yes no hepatosplenomegaly Uterus Location (Fundal Height): 37 Presentation: vertex Estimated Weight (lbs): 7 Objective Labs 04/29/22 07:00 Assessment and Plan Assessment and Plan Assessment and Plan narrative: ASSESSMENT 1. Intrauterine PLAN 1. Admit Time Spent with Patient Total time spent with greater than 50% in coordination of care (as documented) at patient's floor/unit and/or counseling patient:: 15-24 minutes
[2022-04-29 07:23] LABS: Alanine Aminotransferase 112 IU/L (<35); Albumin 3.3 g/dL (3.5-5.0); Albumin Globulin Ratio 1.1 (1.0-2.8); Alkaline Phosphatase 153 U/L (38-126); Aspartate Aminotransferase 61 IU/L (14-36); BUN Creatinine Ratio 22.4 (6-22); Bilirubin Total 0.3 mg/dL (0.2-1.3); Blood Urea Nitrogen 13 mg/dL (7-17); Calcium 8.5 mg/dL (8.4-10.2); Carbon Dioxide 23 mmol/L (22-32); Chloride 105 mmol/L (98-107); Estimated Glomerular Filt Rate > 60 mL/min (>60); Globulin 2.9 g/dL (1.7-4.1); Glucose 84 mg/dL (70-100); HEMOLYSIS < 15 (0-50); Potassium 3.8 mmol/L (3.4-5.1); Sodium 134 mmol/L (137-145); Total Protein 6.2 g/dL (6.3-8.2)
[2022-04-29 07:32] VITALS: BP 126/81; PULSE 85; TEMP 36.1
--- NOTE | 2022-04-29 07:32 | PM.PREOP ---
Pre-operative Note COVID-19 COVID-19 status: Not tested Criteria for continued procedure: Non-surgical alternatives not available or appropriate per current SOC Interval Note History & Physical reviewed/Exam performed by Physician: Yes Changes to H&P: No
[2022-04-29] MEDS: CEFAZOLIN 2 GM/100 ML PREMIX 100 ML IV (08:00)
--- NOTE | 2022-04-29 08:29 | SUR.OPER ---
Supine on Padded OR bed, head on pillow, safety belt at thigh, arms secured on padded arm boards at <90 degrees abduction. Bump under right buttock. Legs uncrossed, tape over blanket to lower legs. Gel pad placed under
[2022-04-29 08:55] LABS: Creatinine Urine Random 214.3 mg/dL; Protein (Total) Urine Random 13 mg/dL (0-12); Protein Creatinine Ratio Urine 0.06 GRAM/24H
--- NOTE | 2022-04-29 08:58 | SUR.OPER ---
viable baby boy delivered at 0831. Placenta and cord blood tubes x2 given to L&D RN.
[2022-04-29 09:21] VITALS: BP 101/68; PULSE 108; RESP 12; O2SAT 96
[2022-04-29 09:22] VITALS: BP 108/73; PULSE 101; RESP 12; TEMP 36.2; O2SAT 96
[2022-04-29 09:26] VITALS: BP 104/60; PULSE 110; RESP 20; O2SAT 97
[2022-04-29] MEDS: LACTATED RINGERS 1,000 ML 100 ML IV (09:29)
[2022-04-29 09:31] VITALS: PULSE 100; RESP 15; O2SAT 96
[2022-04-29 09:32] VITALS: BP 105/69
--- NOTE | 2022-04-29 09:32 | PM.OBCS.1 ---
Operative Date/Time/Diagnoses Date of procedure: 04/29/22 Time of procedure: 08:00 Pre-op diagnosis: Intrauterine gestation, hernandez, 37+4 weeks EGA Previous section x 1 Intrahepatic cholestasis of Elevated liver function studies Post-op diagnosis: same Procedure & Clinicians Procedure: Repeat section, low transverse cervical incision Same procedure as scheduled: Yes Indications: Lucero is a 36-year-old , PILO 05/16/2022 who was admitted now at 37+ 4 weeks gestational age for repeat section.? is being done at this gestational age due to development of intrahepatic cholestasis of midway through the 3rd trimester with subsequent elevation of her ALT and AST to more than twice normal.? She is had intermittent elevations of her blood pressure but no consistent elevations which would justify the diagnosis of gestational hypertension and her protein to creatinine ratio has not been elevated.? GBS is negative.? Cell free DNA shows low risk male fetus. Surgeon: Bubba Harp Reading Assistant: Theresa Fisher Reason for Reading Assistant: Reading Assistant required for the safe, effective, and timely completion of this surgery. Anesthesia Type: Spinal Operative Notes Findings: Viable male BW 3549 gms (7 lbs. 13.2 oz.), Apgars 8/9, delivered from the vertex presentation. Normal gravid anatomy. Closure Type: primary Specimen(s): cord blood Intraoperative meds administered: Ketorolac and Pitocin Applied: Catheter Estimated Blood Loss (mL): 700 Blood products transfused: none Procedure in detail: With her informed written consent, the patient was taken to the operating room and placed in the supine position for a repeat section procedure, for the indication(s) above. The abdomen was prepped and draped in the usual manner for section and a pre-surgical timeout was taken per [facility] OR protocol. Once effective anesthesia was confirmed, a 15 cm transverse Pfannenstiel incision was made in the skin and taken down through the subcutaneous tissues to the deep fascia. The deep fascia was incised transversely, the rectus abdominal eyes bluntly and sharply, and the peritoneal cavity entered without difficulty. The lower uterine segment was visualized and the position/presentation palpated. A transverse incision at or above the vesicouterine reflection was made with Metzenbaum scissors and transverse hysterotomy performed near the midline. Amniotomy revealed clear fluid. The incision was extended bilaterally with digital traction and the infant was delivered easily from the vertex presentation. The was vigorous and cord clamping delayed for 60 seconds. The placenta was delivered intact using gentle cord traction and fundal massage.The uterine cavity was then cleared of any clot/debris first with a sloppy wet lap tape followed by a dry lap tape. Ring forceps were then applied to the angles and the midline of the incised ELVIS. A primary closure of the uterus was then accomplished with #1 CCGS in a running interlocking stitch followed by a 2nd layer of #1 CCGS in a running interlocking imbricating stitch. No additional sutures was/were required to achieve complete hemostasis. Once pelvic hemostasis was assured, the bladder flap and anterior peritoneum were closed with a running 2-0 Vicryl suture and the fascia closed with #1 Vicryl in a running stitch initiated at both angles and tying separately near the midline. The subcutaneous tissues were reapproximated with 2-0 plain catgut suture using inverted interrupted stitches. The skin edges were then brought together with 4-0 Monocryl in a subcuticular closure and the incision was reinforced with 1 Steri-Strips. An appropriate compression dressing was applied and the patient transferred to PACU for recovery and subsequent transfer to the Center for recuperation. Complications: none [place] Baby 1: Gender: Male Presentation: vertex Position: Occiput Posterior Placental Delivery Description: Spontaneous Cord Vessel Description: 3 Vessels score (1 min): 8 score (5 min): 9 weight: 7 lb 13.187 oz Post-operative Condition: stable Disposition: PACU Aftercare: routine postop
--- NOTE | 2022-04-29 09:41 | SUR.PHASEI ---
back to [facility] with belongings. moving feet and increasing sensation.
[2022-04-29] MEDS: ACETAMINOPHEN 325 MG TABLET 650 MG PO ×3 (10:40→22:57)
[2022-04-29] MEDS: ONDANSETRON 4 MG/2 ML INJ IV (12:57)
[2022-04-29] MEDS: ursodioL 300 MG CAPSULE PO (13:09)
[2022-04-29] MEDS: KETOROLAC 30 MG/ML VIAL IV ×2 (15:22→21:09)
[2022-04-29] MEDS: LANOLIN OINT 7 GM 1 APPLIC TOP (21:07)
[2022-04-30] MEDS: KETOROLAC 30 MG/ML VIAL IV (02:59)
[2022-04-30] MEDS: ACETAMINOPHEN 325 MG TABLET 650 MG PO ×4 (04:53→23:29)
[2022-04-30 06:52] LABS: Add Manual Diff / Slide Review NO; Basophils Absolute Auto 100 /uL (0-100); Basophils Percent Auto 0.8 % (0-2); Eosinophils Absolute Auto 0 /uL (0-450); Eosinophils Percent Auto 0.3 % (2-4); Hematocrit 27.6 % (36-46); Hemoglobin 9.6 g/dL (12.0-16.0); Lymphocytes Absolute Auto 1400 /uL (1100-4500); Lymphocytes Percent Auto 14.8 % (25-40); Mean Corpuscular HGB Conc 34.7 % (30-36); Mean Corpuscular Volume 95.2 fL (80-100); Monocytes Absolute Auto 400 /uL (0-900); Monocytes Percent Auto 4.4 % (3-14); Neutrophils Absolute Auto 7500 /uL (1500-7000); Neutrophils Percent Auto 79.7 % (50-75); Platelet Count 210 X10^3/uL (150-400); Red Cell Distribution Width 13.3 % (11.6-14.8); White Blood Cell Count 9.4 X10^3/uL (4.5-11.0)
[2022-04-30 07:04] LABS: Alanine Aminotransferase 108 IU/L (<35); Albumin 2.7 g/dL (3.5-5.0); Albumin Globulin Ratio 1.1 (1.0-2.8); Alkaline Phosphatase 121 U/L (38-126); Aspartate Aminotransferase 60 IU/L (14-36); BUN Creatinine Ratio 19.5 (6-22); Bilirubin Total 0.2 mg/dL (0.2-1.3); Blood Urea Nitrogen 15 mg/dL (7-17); Calcium 8.3 mg/dL (8.4-10.2); Carbon Dioxide 27 mmol/L (22-32); Chloride 102 mmol/L (98-107); Estimated Glomerular Filt Rate > 60 mL/min (>60); Globulin 2.5 g/dL (1.7-4.1); Glucose 95 mg/dL (70-100); HEMOLYSIS < 15 (0-50); Potassium 3.9 mmol/L (3.4-5.1); Sodium 131 mmol/L (137-145); Total Protein 5.2 g/dL (6.3-8.2)
[2022-04-30] MEDS: PRENATAL VIT,CALC/IRON/FOLIC 1 TABLET 1 TAB PO (08:58)
[2022-04-30] MEDS: IBUPROFEN 600 MG TABLET PO ×3 (08:58→20:32)
[2022-04-30] MEDS: ursodioL 300 MG CAPSULE PO ×3 (08:59→20:32)
[2022-04-30] MEDS: DOCUSATE 100 MG CAPSULE PO (08:59)
[2022-04-30 10:42] LABS: Bile Acids 9.6 umol/L (0.0-10.0)
--- NOTE | 2022-04-30 14:10 | P.DS_ITS ---
Discharge Providers Provider Date of admission: 04/29/22 05:48 Discharge Date: 05/01/22 Primary care physician: Guillaume TAVARES Provider Consults: 04/29/22 09:49 Consult to Fisheries Enforcement Officer Routine Comment: Discharge provider: Nigel Sheets MD Summary Hospital Course Date Patient Seen: 05/01/22 Time Patient Seen: 14:36 Diagnoses: 2nd day postop repeat Hospital Course: I was called by nursing Service to come discharge her. Patient stated that she did not request to go home even though her baby has been discharged. She says she is been feeling weak when she gets up to go to the bathroom Patient's uterine fundus is appropriately tender for 1st postop day. Patient has not had any narcotic since her delivery minimally touching her fundus caused pain and I encouraged the patient to take a single oxycodone Patient's liver functions are still significantly elevated with only minimal decrease Now May 01. Patient much less pain and does ask for discharge Peripartum Data Infant Delivery Method: Section Time Spent with Patient Time attestation: Total time spent providing and/or coordinating discharge services: Time spent: Greater than 30 minutes Objective Labs 04/30/22 06:41 04/30/22 06:41 Labs: Laboratory Results - last 24 hr 04/29/22 04/30/22 04/30/22 07:00 06:41 06:41 WBC 9.4 RBC 2.90 L Hgb 9.6 L Hct 27.6 L MCV 95.2 MCH 33.0 MCHC 34.7 RDW 13.3 Plt Count 210 Neut % (Auto) 79.7 H Lymph % (Auto) 14.8 L [place] % (Auto) 4.4 Eos % (Auto) 0.3 L Baso % (Auto) 0.8 Neut # (Auto) 7500 H Lymph # (Auto) 1400 [place] # (Auto) 400 Eos # (Auto) 0 Baso # (Auto) 100 Sodium 131 L Potassium 3.9 Chloride 102 Carbon Dioxide 27 BUN 15 Creatinine 0.77 Estimated GFR > 60 BUN/Creatinine Ratio 19.5 Glucose 95 Calcium 8.3 L Total Bilirubin 0.2 AST 60 H ALT 108 H Alkaline Phosphatase 121 Total Protein 5.2 L Albumin 2.7 L Globulin 2.5 Albumin/Globulin Ratio 1.1 Bile Acids 9.6 Exam Vital Signs (past 8 hours): Oxygen Delivery Method Room Air Const General: cooperative Nutritional Appearance: average body habitus HENMT Head: normal to inspection Face and sinus: normal facial exam GI Palpation: soft Other: Incision clean and dry around the Aquacel Psych Appearance: grossly normal Mood: congruent mood Affect: normal affect Judgment: judgment good Discharge Plan Discharge Plan Provider Discharge Comment: Patient understands the need to get liver function test and CBC on and come to the clinic on Monday for her wound evaluation Discharge orders & Medications Discharge Orders: Discharge (Order); Ordered 05/01/22 Ordered By: Nigel Sheets Prescriptions: New ursodiol 300 mg Capsule 300 mg PO TID Qty: 30 0RF ibuprofen 600 mg Tablet 600 mg PO Q6H Qty: 30 0RF oxycodone 5 mg Tablet 5 mg PO 1-2XD PRN (Reason: Pain, Moderate (4-6)) Qty: 15 0RF Continued prenat.vits,louis,[id number] Tablet 1 tab PO DAILY ursodiol 300 mg capsule 300 mg PO TID Qty: 90 2RF omeprazole 20 mg capsule,delayed release(DR/EC) 20 mg 2XD Follow up/Referrals: Nigel Sheets MD [Physician] - (Incision check with Dr. Sheets on 05/06/2022 @ 1430) ProviderGuillaume [Primary Care Provider] - Discharge Data Primary Care Provider: Guillaume Kwong
[2022-04-30] MEDS: OXYCODONE IR 5 MG TABLET PO ×2 (14:28→20:32)
--- NOTE | 2022-04-30 14:39 | P.PN_ITS ---
Subjective Subjective Date Patient Seen: 04/30/22 Time Patient Seen: 14:42 Interval history: 30 hours postop from repeat section. I was called by nurses to discharge patient as the baby was discharged Speaking to the patient she was not wanting to go home as she was still having significant pain around her uterine fundus. While taking routine ibuprofen she has not had any narcotic since surgery Patient is continuing her Ursoliol and is not having any systemic itching Exam Vital Signs (past 8 hours): Oxygen Delivery Method Room Air Narrative Exam Narrative: Patient's initial pressure dressing was removed incision was clean dry and an Aquacel was applied Objective ECG Impression: 1st postop day satisfactory. AST and ALT have not decreased significantly patient is anemic at 9.08/23. She states she is lightheaded when she goes erect. Discussed she will need to take some iron when she comes home Labs 04/30/22 06:41 04/30/22 06:41 Labs: Laboratory Results - last 24 hr 04/29/22 04/30/22 04/30/22 07:00 06:41 06:41 WBC 9.4 RBC 2.90 L Hgb 9.6 L Hct 27.6 L MCV 95.2 MCH 33.0 MCHC 34.7 RDW 13.3 Plt Count 210 Neut % (Auto) 79.7 H Lymph % (Auto) 14.8 L [place] % (Auto) 4.4 Eos % (Auto) 0.3 L Baso % (Auto) 0.8 Neut # (Auto) 7500 H Lymph # (Auto) 1400 [place] # (Auto) 400 Eos # (Auto) 0 Baso # (Auto) 100 Sodium 131 L Potassium 3.9 Chloride 102 Carbon Dioxide 27 BUN 15 Creatinine 0.77 Estimated GFR > 60 BUN/Creatinine Ratio 19.5 Glucose 95 Calcium 8.3 L Total Bilirubin 0.2 AST 60 H ALT 108 H Alkaline Phosphatase 121 Total Protein 5.2 L Albumin 2.7 L Globulin 2.5 Albumin/Globulin Ratio 1.1 Bile Acids 9.6 PFSH Medical History (Updated 04/27/22 @ 14:48 by Bubba Harp MD) Carpal tunnel syndrome during Cholestasis during Elevated BP without diagnosis of hypertension Knee pain Migraine depression Preeclampsia Varicose veins during Surgical History (Updated 04/12/22 @ 13:30 by Bubba Harp MD) History of tonsillectomy Previous section Status post colposcopy [place] teeth extracted Family History (Updated 11/10/21 @ 10:24 by Myra Salgado RN) Mother Diabetes mellitus Fatty liver Father Diabetes mellitus Hyperthyroidism Stroke Afib Grandmother Colon cancer Family/Other Congenital heart defect Autoimmune disease Family/Other Brain tumor Family/Other Deafness Social History marital status: unmarried,living together number of children: 1 household members: significant other and children lives independently: Yes housing: house pets and animals: Yes (1 dog) education level: college occupational status: employed current occupational exposures/hazards: Yes (initial exposure to radiation and Hazmat, no longer) special linda needs: No travel history: recent seatbelt use: always water heater temp set < 120 deg: Yes working smoke detector in home: Yes fire extinguisher in home: Yes carbon monox detector in home: Yes firearms in home: Yes firearms unloaded and locked: Yes do you feel safe at home: Yes Smoking Status: Never smoker second hand exposure: No alcohol intake: former substance use type: does not use during the past year weight has: remained stable well-balanced diet: daily or most days daily servings fruits/ve-4 caffeine: Yes Type(s) of exercise: walking and weight lifting Assessment & Plan Post-op Postoperative Procedures: Procedures Operation Date: 04/29/22 07:45 Actual Procedure Side Surgeon p Repeat Section Not Applicable Bubba Harp MD Postoperative day: 1 Postoperative status narrative: Appropriate for 30 hours postop Postoperative plan: routine post-op care Time Spent With Patient Time with patient: 15-24 minutes
[2022-05-01] MEDS: OXYCODONE IR 5 MG TABLET PO ×4 (00:41→13:50)
[2022-05-01] MEDS: IBUPROFEN 600 MG TABLET PO ×3 (02:42→13:50)
[2022-05-01] MEDS: ACETAMINOPHEN 325 MG TABLET 650 MG PO ×2 (05:30→12:21)
[2022-05-01] MEDS: DOCUSATE 100 MG CAPSULE PO (08:40)
[2022-05-01] MEDS: PRENATAL VIT,CALC/IRON/FOLIC 1 TABLET 1 TAB PO (08:40)
[2022-05-01] MEDS: ursodioL 300 MG CAPSULE PO ×2 (08:40→13:51)
[2022-05-01 08:42] VITALS: TEMP 36.6
[2022-05-01 08:43] VITALS: TEMP 36.7
[2022-05-01 12:51] VITALS: BP 128/70; PULSE 87; RESP 17; TEMP 36.7
== END 2022-05-01 14:00 | disposition home or self-care (01) | DRG 786 ==
PROVIDERS: Admitting Provider Obstetrics & Gynecology; Visit Provider Obstetrics & Gynecology
PROC: 10D00Z1 Extraction of Products of Conception, Low, Open Approach (ICD-10-PCS; CPT 59514; principal; 2022-04-29 07:45)
DX: O26.62 Liver and biliary tract disorders in childbirth (principal); O99.42 Diseases of the circulatory system complicating childbirth; R03.0 Elevated blood-pressure reading, without diagnosis of hypertension; Z3A.37 37 weeks gestation of pregnancy; Z37.0 Single live birth
CPT/HCPCS: 36415; 59050; 59510; 59514; 80053; 82239; 82570; 84156; 85025; J0690; J1885; J2274; J2405; J2590

== ENCOUNTER 2022-05-03 23:40 | Emergency (ER) | payer OTHER, SELFPAY ==
[2022-05-03 23:46] VITALS: BP 150/97; PULSE 97; O2SAT 99
[2022-05-03 23:53] VITALS: BP 150/97; PULSE 105; RESP 19; TEMP 36.7; O2SAT 98; BMI 32.5
--- NOTE | 2022-05-04 00:15 | PC.NURSE ---
pt c/o problems with incision and pain in her lower leg/calf, pt had a 3/ and is c/o possible bleeding near her incision
--- NOTE | 2022-05-04 00:30 | DI.US.S_ITS ---
PROCEDURE: US PERIPH VENOUS LOW EXTREM LT INDICATIONS: EDEMA TECHNIQUE: Real-time imaging, as well as color and pulse Doppler interrogation, were performed of the lower extremity deep veins from the inguinal ligament to the popliteal fossa. COMPARISON: None. FINDINGS: The common femoral, femoral and popliteal veins are normally compressible, and free of intraluminal thrombus. Color and pulse Doppler demonstrate normal phasic intraluminal flow. There is normal augmentation response to distal compression maneuver. IMPRESSION: 1. No evidence of deep venous thrombosis in the left lower extremity. Dictated by: Shiva Funez M.D. on 05/04/2022 at 1:25 Approved by: Shiva Funez M.D. on 05/04/2022 at 1:30
--- NOTE | 2022-05-04 00:30 | ED_ITS ---
HPI - Wound/Laceration General Chief Complaint: Wound/Laceration Stated Complaint: Possible blood clot, site bleeding Time Seen by Provider: 05/04/22 00:20 Source: patient and family Mode of arrival: Ambulatory History of Present Illness HPI narrative: Patient is a 36-year-old female who 5 days ago underwent a repeat . She was discharged from the hospital 3 days ago. She has a follow-up appointment with her OB doctor tomorrow. She is here in the emergency department for concerns of bleeding from the surgical site and also swelling to her left lower extremity and also tingling to the area right at the bottom of her left thumb. She stated that she did not notice any bleeding on the surgical pad until earlier today. She feels like it is worsening. She has had swelling in her left leg since the and since discharge but feels that maybe the symptoms are worsening. She contacted the on-call OB doctor who advised that she come to the emergency department Related Data Home Medications Medication Instructions Recorded Confirmed prenat.vits,louis,[id number] 1 tab PO DAILY 11/10/21 05/01/22 omeprazole 20 mg capsule,delayed 20 mg 2XD 04/29/22 05/01/22 release Previous Rx's Medication Instructions Recorded ursodiol 300 mg capsule 300 mg PO TID #90 caps 04/09/22 ibuprofen 600 mg tablet 600 mg PO Q6H #30 tabs 05/01/22 oxycodone 5 mg tablet 5 mg PO 1-2XD PRN Pain, Moderate 05/01/22 (4-6) #15 tabs ursodiol 300 mg capsule 300 mg PO TID #30 caps 05/01/22 Allergies Allergy/AdvReac Type Severity Reaction Status Date / Time No Known Drug Allergies Allergy Verified 04/27/22 14:02 Review of Systems Constitutional Constitutional: Reports system reviewed and no additional complaints, except as documented Musculoskeletal Musculoskeletal: Reports system reviewed and no additional complaints, except as documented Integumentary/Breasts Skin/Breast: Reports system reviewed and no additional complaints, except as documented Patient History Medical History Carpal tunnel syndrome during Cholestasis during Elevated BP without diagnosis of hypertension Knee pain Migraine depression Preeclampsia Varicose veins during Surgical History (Updated 04/12/22 @ 13:30 by Bubba Harp MD) History of tonsillectomy Previous section Status post colposcopy [place] teeth extracted Family History (Updated 11/10/21 @ 10:24 by Myra Salgado RN) Mother Diabetes mellitus Fatty liver Father Diabetes mellitus Hyperthyroidism Stroke Afib Grandmother Colon cancer Family/Other Congenital heart defect Autoimmune disease Family/Other Brain tumor Family/Other Deafness Social History marital status: unmarried,living together number of children: 1 household members: significant other and children lives independently: Yes housing: house pets and animals: Yes (1 dog) education level: college occupational status: employed current occupational exposures/hazards: Yes (initial exposure to radiation and Hazmat, no longer) special linda needs: No travel history: recent seatbelt use: always water heater temp set < 120 deg: Yes working smoke detector in home: Yes fire extinguisher in home: Yes carbon monox detector in home: Yes firearms in home: Yes firearms unloaded and locked: Yes do you feel safe at home: Yes Smoking Status: Never smoker second hand exposure: No alcohol intake: former substance use type: does not use during the past year weight has: remained stable well-balanced diet: daily or most days daily servings fruits/ve-4 caffeine: Yes Type(s) of exercise: walking and weight lifting Smoking Status: Never smoker alcohol intake frequency: a few times a month Substance Use Type: does not use Exam Initial Vital Signs Initial Vital Signs: Vital Signs Pulse Rate 97 H 05/03/22 23:46 Blood Pressure 150/97 H 05/03/22 23:46 Pulse Oximetry 99 05/03/22 23:46 Skin Other: Patient's surgical wound appears well. There is no surrounding erythema. She does have bruising that extends from the surgical wound down to the mons. The surgical dressing was removed in the Steri-Strips underneath were saturated with dried blood and were not sticking to the skin so these were removed as well. Neuro General: patient alert and patient awake Extrem Other: Patient does have bilateral lower extremity swelling with left slightly greater than right. Course Orders Ordered: ED Orders 05/04/22 00:30 US periph venous low extrem lt Stat Vital Signs Vital signs: Vital Signs - 8 hr 05/03/22 23:53 05/03/22 23:46 05/03/22 23:46 Temperature 98.1 F Pulse Rate 105 H 97 H Respiratory Rate 19 Blood Pressure 150/97 H 150/97 H Pulse Oximetry 98 99 Oxygen Delivery Method Room Air 05/04/22 02:09 Temperature Pulse Rate 85 Respiratory Rate 18 Blood Pressure 136/92 H Pulse Oximetry 97 Oxygen Delivery Method MDM - Wound/Laceration Imaging Data US - DVT: Radiologist's Impression: PROCEDURE:? US PERIPH VENOUS LOW EXTREM LT ? INDICATIONS:? EDEMA ? TECHNIQUE:? Real-time imaging, as well as color and pulse Doppler interrogation, were performed of the lower extremity deep veins from the inguinal ligament to the popliteal fossa.? ? COMPARISON:? None. ? FINDINGS:? The common femoral, femoral and popliteal veins are normally compressible, and free of intraluminal thrombus.? Color and pulse Doppler demonstrate normal phasic intraluminal flow.? There is normal augmentation response to distal compression maneuver. ? ? IMPRESSION:? ? 1. No evidence of deep venous thrombosis in the left lower extremity. [facility] Narrative Medical decision making narrative: The surgical dressing was removed and the Steri-Strips that were saturated with dried blood that were no longer sticking to the skin were removed as well. This is on the right side of the surgical wound. After period of time there do not appear to be any bleeding. There was no signs of wound dehiscence. There is no surrounding erythema. No signs of infection. New Steri-Strips were placed over the area and a new dressing was placed over the entire wound. Patient does having quite a bit of sensitivity to the area. However the surgical area appears expected for this time after the . There is no crepitus. The left lower extremity DVT ultrasound is negative. I suspect that the swelling is fluid shifts from the surgery. The subjective tingling at the base of the left thumb needs no specific intervention in the emergency department this evening. Patient was provided reassurance although she did appear to be very anxious over her symptoms today no unsure as to whether not she was reassured from the visit this evening. I did advised that she keep her follow-up with the OB provider that is already scheduled Discharge Plan Departure Patient Disposition: Home Clinical Impression: Left leg swelling, Post-operative pain Activity Restrictions/Additional Instructions: The ultrasound today did not show any signs of a blood. There was also no indication of any active bleeding today. I recommend that you keep your follow- up with forestry supervisor tomorrow. Return to the emergency department for new symptoms. Prescriptions: No Action prenat.vits,louis,dqn-tieo-hqdno Tablet 1 tab PO DAILY ursodiol 300 mg capsule 300 mg PO TID Qty: 90 2RF omeprazole 20 mg capsule,delayed release(DR/EC) 20 mg 2XD ursodiol 300 mg Capsule 300 mg PO TID Qty: 30 0RF ibuprofen 600 mg Tablet 600 mg PO Q6H Qty: 30 0RF oxycodone 5 mg Tablet 5 mg PO 1-2XD PRN (Reason: Pain, Moderate (4-6)) Qty: 15 0RF Referrals: ProviderGuillaume [Primary Care Provider] - Stand Alone Forms: Patient Portal/API
[2022-05-04 02:09] VITALS: BP 136/92; PULSE 85; RESP 18; O2SAT 97
== END 2022-05-04 02:21 | disposition home or self-care (01) ==
PROVIDERS: Emergency Provider Emergency Medicine
DX: G89.18 Other acute postprocedural pain (principal); R22.42 Localized swelling, mass and lump, left lower limb
CPT/HCPCS: 93971; 99281; 99283

== ENCOUNTER → 2022-05-04 14:05 | Outpatient (CLI) | payer OTHER, SELFPAY ==
--- NOTE | 2022-05-04 14:06 | DI.US.S_ITS ---
PROCEDURE: US ABDOMEN LIMITED INDICATIONS: Look for Fluid Collection TECHNIQUE: Real-time scanning was performed of the anterior abdominal wall COMPARISON: None. FINDINGS: In the anterior abdominal wall, there is a 2.0 x 1.7 x 7.7 cm complex fluid collection without vascularity and 1.6 cm deep to the skin IMPRESSION: 1. Anterior abdominal wall complex fluid collection may reflect postoperative seroma or hematoma. Consider ultrasound guided percutaneous sampling to exclude infection Approved by: Mark Wall M.D. on 05/04/2022 at 19:05
== END ==
PROVIDERS: Referring Provider Obstetrics & Gynecology; Visit Provider Obstetrics & Gynecology
DX: T14.8XXA Other injury of unspecified body region, initial encounter (principal); G89.18 Other acute postprocedural pain
CPT/HCPCS: 76705

== ENCOUNTER → 2024-11-19 07:22 | Outpatient (CLI) | payer OTHER, SELFPAY ==
--- NOTE | 2024-11-19 07:23 | DI.MRI.S_ITS ---
PROCEDURE: MR LUMBAR SPINE WO CON INDICATIONS: low back pain TECHNIQUE: Noncontrast sagittal T1 spin echo and T2 fast echo, sagittal STIR, and T2 fast spin echo through the lumbar spine. In cases with scoliosis, additional coronal T2 fast spin echo may be performed. COMPARISON: None. FINDINGS: Image quality: Motion degraded. Alignment and Curvature: Mild dextrocurvature of the thoracolumbar spine. Bone Marrow: Marrow is of normal overall signal. No acute vertebral body compression fractures. Spinal Cord: Conus medullaris terminates at the L1 level. Visualized cord demonstrates normal signal and size. Paraspinous Soft Tissues: No paravertebral masses. T12-L1: Normal appearance. L1-L2: Normal appearance. L2-L3: Normal appearance. L3-L4: Facet arthropathy. No significant central canal or neural foraminal stenosis. L4-L5: Disc desiccation and mild disc bulge with small right paracentral disc protrusion. Facet arthropathy. No significant central canal stenosis. Narrowing of the right lateral recess with abutment of the descending right L5 nerve root. Mild bilateral neural foraminal stenosis. L5-S1: Disc desiccation and mild diffuse disc bulge. Facet arthropathy. No central canal stenosis. Moderate bilateral neural foraminal stenosis. IMPRESSION: 1. Degenerative changes of the lower lumbar spine as described above. 2. No significant central canal stenosis. Narrowing of the right lateral recess at L4-5 with abutment of the descending right L5 nerve root. 3. Moderate bilateral neural foraminal stenosis at L5-S1. Dictated by: Adarsh Ledezma M.D. on 11/19/2024 at 10:25 Approved by: Adarsh Ledezma M.D. on 11/19/2024 at 10:30
== END ==
LOC: MRI 07:22
DX: M47.816 Spondylosis without myelopathy or radiculopathy, lumbar region (principal); M47.817 Spondylosis without myelopathy or radiculopathy, lumbosacral region; M48.061 Spinal stenosis, lumbar region without neurogenic claudication; M48.07 Spinal stenosis, lumbosacral region; M54.50 Low back pain, unspecified
CPT/HCPCS: 72148